=== PATIENT | female | born 1970 | race Caucasian/White ===

== ENCOUNTER 2018-07-04 08:20 | Day surgery (SDC) | payer OTHER ==
[~2018-07-04 08:20] MED LIST: Bupivacaine 0.5% 50 ML MDV ONE; Lidocaine 1% with EPINEPHrine 1:100,000 50 ML MDV ONE
[2018-07-04] MEDS ORDERED: Dextrose 5%-Lactated Ringers 1,000 ML IV SCH (08:30)
[2018-07-04] MEDS ORDERED: fentaNYL 100 MCG/2 ML SDV ONE (09:26)
[2018-07-04] MEDS ORDERED: Midazolam 1 MG/ML 2 ML SDV ONE (09:26)
[2018-07-04] MEDS ORDERED: Propofol 200 MG/20 ML SDV ONE (09:26)
[2018-07-04] MEDS ORDERED: ceFAZolin 2 GM in Premix Bag 1 BAG IV ONE (09:30)
--- NOTE | 2018-07-08 14:36 | OR ---
DATE OF PROCEDURE: 07/04/2018 PREOPERATIVE DIAGNOSIS: Complex partially cystic mass, right breast. POSTOPERATIVE DIAGNOSIS: Complex partially cystic mass, right breast. OPERATIVE PROCEDURE: Excision biopsy of complex partially cystic mass of right breast with intraoperative ultrasound guidance ([id number]). ANESTHESIA: Local plus IV sedation. COIN COUNTER AND WRAPPER: BAILEY Garcia INDICATION FOR PROCEDURE: This is a 48-year-old presenting with recently identified complex partial cystic mass in the right breast. After a preop evaluation and discussion, she wished to proceed with excision of this. Potential risks of the procedure including bleeding and infection were reviewed as well as possible need for additional treatment if malignancy is identified were all gone over, and the patient wishes to proceed. DETAILS OF PROCEDURE: The patient was taken to the operating room and placed in a supine position. IV sedation was administered, after which the area in the upper outer quadrant of the right breast was visualized by ultrasound and the area of the roughly 8 mm mass was identified. The skin overlying this was marked and depth of the lesion confirmed to be beginning at less than a centimeter below the skin. Following this, the right breast and surrounding areas were prepped and draped, and the area in the upper outer quadrant fairly close to the nipple-areolar border was injected with 1% lidocaine mixed with Marcaine. A slightly curved incision in line with skin creases was made and carried down through the skin and subcutaneous tissue. The entire area of subcutaneous tissue and some breast tissue underlying this, and a fairly broad area was then excised to make sure that we were getting the entire area removed, and this did contain some cystic material within it. The cyst that was identified was decompressed during the course of the manipulation and dissection. Specimen was then delivered from the field. The area around it was inspected. It was clear at this point that we had obtained a satisfactory complete excision of the area of concern. The area was inspected for hemostasis and minor bleeding points were cauterized. Incision was then closed with some 3-0 and 4-0 Vicryl stitch deep and a 4-0 Vicryl subcuticular stitch. Dressing was applied. The patient was taken to the recovery room in satisfactory condition. There were no evident complications. Cody Lakhani MD /[id number]
== END 2018-07-04 12:48 | disposition home or self-care (01) ==
LOC: JP.SDS 08:20
PROVIDERS: ATTEND Surgery
DX: N60.11 Diffuse cystic mastopathy of right breast (principal); N64.1 Fat necrosis of breast; N60.81 Other benign mammary dysplasias of right breast; I12.9 Hypertensive chronic kidney disease with stage 1 through stage 4 chronic kidney disease, or unspecified chronic kidney disease; N18.3 Chronic kidney disease, stage 3 (moderate); I69.951 Hemiplegia and hemiparesis following unspecified cerebrovascular disease affecting right dominant side; E78.5 Hyperlipidemia, unspecified; E66.9 Obesity, unspecified; Z68.39 Body mass index [BMI] 39.0-39.9, adult
CPT/HCPCS: 19120; 76998; 88305; J0690; J2250; J2704; J3010; J3490; J7042

== ENCOUNTER 2020-09-11 15:12 | Emergency (ER) | payer BC ==
[2020-09-11] MEDS ORDERED: Ondansetron 4 MG/2 ML SDV IVPUSH ONE (15:54)
[2020-09-11] MEDS ORDERED: fentaNYL 100 MCG/2 ML SDV IVPUSH ONE (15:54)
[2020-09-11] MEDS ORDERED: Sodium Chloride 0.9% 1,000 ML IV SCH (16:00)
--- NOTE | 2020-09-11 16:25 | EDM.PDOC ---
ED HPI GENERAL MEDICAL PROBLEM - General Chief Complaint: Abdominal Pain Stated Complaint: SEVERE ABDOMINAL PAIN Time Seen by Provider: 09/11/20 15:30 Source of Information: Reports: Patient History Limitations: Reports: No Limitations - History of Present Illness INITIAL COMMENTS - FREE TEXT/NARRATIVE: This is a 50 year old female presenting with abdominal pain. The patient reports she first had an episode of mild epigastric/upper abdominal pain one week ago. It was mild and went away so she didn't think much of it. 2 days ago she developed another episode of upper/epigastric abdominal pain that was severe in nature and associated with nausea and a feeling like she might faint. that episode lasted about 2 hours and resolved on its own. She generally felt well yesterday and ate without difficulty. However, today again around 1:30 this afternoon she developed severe upper abdominal pain that has been persistent since onset. She does admit that the episodes of pain seem related to eating, though she ate a hamburger yesterday without symptoms. She admits to a cholecystectomy many years ago. She does note a history of episodes of diarrhea and notes that is unchanged recently. No urinary symptoms. Abdominal Pain Score (Numeric/FACES): 7 - Related Data Allergies Allergy/AdvReac Type Severity Reaction Status Date / Time clotrimazole Allergy Swelling Verified 09/11/20 15:26 hydrochlorothiazide Allergy Renal Verified 09/11/20 15:26 Insufficiency trazodone Allergy Other Verified 09/11/20 15:26 Home Meds: Home Meds Loratadine 10 mg PO DAILY 12/11/17 [History] Metoprolol Succinate [Toprol XL 100mg] 100 mg PO DAILY 12/11/17 [History] amLODIPine Besylate [Amlodipine Besylate] 5 mg PO DAILY 12/11/17 [History] Aspirin [Halfprin] 81 mg PO DAILY 07/03/18 [History] Diclofenac Sodium [Voltaren] 1 applic TP QID PRN 07/03/18 [History] Triamcinolone Acetonide [Kenalog 0.1% Crm] 1 applic TOP BID PRN 07/03/18 [History] atorvaSTATin [Lipitor] 20 mg PO BEDTIME 07/03/18 [History] Amitriptyline [Elavil] 20 mg PO BEDTIME 05/28/19 [History] gemfibroziL [Gemfibrozil] 600 mg PO BID 09/11/20 [History] Past Medical History HEENT History: Reports: Allergic Rhinitis, Impaired Vision Cardiovascular History: Reports: High Cholesterol, Hypertension, Other (See Below) Other Cardiovascular History: loop heart recorder Gastrointestinal History: Reports: Cholelithiasis Genitourinary History: Reports: Renal Calculus 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 bone spurs Neurological History: Reports: CVA, Vertigo - Infectious Disease History Infectious Disease History: Reports: Chicken Pox - Past Surgical History HEENT Surgical History: Reports: None Cardiovascular Surgical History: Reports: None GI Surgical History: Reports: Cholecystectomy, EGD, Hernia, Abdominal Female Surgical History: Reports: Hysterectomy, Salpingo-Oophorectomy, Tubal Ligation Neurological Surgical History: Reports: None Musculoskeletal Surgical History: Reports: None Social & Family History - Family History Family Medical History: No Pertinent Family History - Tobacco Use Tobacco Use Status *Q: Never Tobacco User - Caffeine Use Caffeine Use: Reports: Soda - Recreational Drug Use Recreational Drug Use: No ED ROS GENERAL - Review of Systems Review Of Systems: Comprehensive ROS is negative, except as noted in HPI. ED EXAM, GI/ABD - Physical Exam Exam: See Below Exam Limited By: No Limitations General Appearance: Alert, Mild Distress (secondary to abdominal pain) Head: Atraumatic, Normocephalic Neck: Supple, Full Range of Motion Respiratory/Chest: No Respiratory Distress, Lungs Clear, Normal Breath Sounds, No Accessory Muscle Use Cardiovascular: Regular Rate, Rhythm GI/Abdominal Exam: Soft, No Distention, Tender (tender to palpation over epigastrium and periumbilical. ). No: Guarding, Rigid, Rebound Extremities: Normal Range of Motion Neurological: Alert, Oriented, Normal Cognition Psychiatric: Normal Affect, Normal Mood Skin Exam: Warm, Dry, No Rash. No: Jaundice Course - Vital Signs Last Recorded V/S: Last Vital Signs Temp 96.8 F L 09/11/20 15:32 Pulse 56 L 09/11/20 17:20 Resp 22 H 09/11/20 15:32 BP 108/69 09/11/20 17:20 Pulse Ox 94 L 09/11/20 17:20 - Orders/Labs/Meds Labs: Laboratory Tests 09/11/20 09/11/20 09/11/20 Range/Units 16:00 16:00 16:00 WBC 5.6 (4.5-11.0) K/uL RBC 4.50 (3.30-5.50) M/uL Hgb 13.5 (12.0-15.0) g/dL Hct 40.2 (36.0-48.0) % MCV 89 (80-98) fL MCH 30 (27-31) pg MCHC 34 (32-36) % Plt Count 251 (150-400) K/uL Neut % (Auto) 58.4 (36-66) % Lymph % (Auto) 26.0 (24-44) % [place] % (Auto) 7.5 H (2-6) % Eos % (Auto) 7.7 H (2-4) % Baso % (Auto) 0.4 (0-1) % Sodium 143 (140-148) mmol/L Potassium 4.2 (3.6-5.2) mmol/L Chloride 105 (100-108) mmol/L Carbon Dioxide 26 (21-32) mmol/L Anion Gap 12.1 (5.0-14.0) mmol/L BUN 23 H (7-18) mg/dL Creatinine 1.5 H (0.6-1.0) mg/dL Est Cr Clr Drug Dosing 45.26 mL/min Estimated GFR (MDRD) 37 L (>60) Glucose 166 H (74-106) mg/dL Lactic Acid 1.5 (0.4-2.0) mmol/L Calcium 9.2 (8.5-10.1) mg/dL Total Bilirubin 0.8 D (0.2-1.0) mg/dL AST 30 (15-37) U/L ALT 35 (12-78) U/L Alkaline Phosphatase 84 D (46-116) U/L Total Protein 7.0 (6.4-8.2) g/dL Albumin 3.6 (3.4-5.0) g/dL Globulin 3.4 (2.3-3.5) g/dL Albumin/Globulin Ratio 1.1 L (1.2-2.2) Lipase 152 (73-393) U/L Urine Color (YELLOW) Urine Appearance (CLEAR) Urine pH (5.0-8.0) Ur Specific [place] (1.008-1.030) Urine Protein (NEGATIVE) mg/dL Urine Glucose (UA) (NEGATIVE) mg/dL Urine Ketones (NEGATIVE) mg/dL Urine Occult Blood (NEGATIVE) Urine Nitrite (NEGATIVE) Urine Bilirubin (NEGATIVE) Urine Urobilinogen (0.2-1.0) EU/dL Ur Leukocyte Esterase (NEGATIVE) Urine RBC (0-5) Urine WBC (0-5) Ur Epithelial Cells Amorphous Sediment Urine Bacteria Urine Mucus 09/11/20 Range/Units 18:05 WBC (4.5-11.0) K/uL RBC (3.30-5.50) M/uL Hgb (12.0-15.0) g/dL Hct (36.0-48.0) % MCV (80-98) fL MCH (27-31) pg MCHC (32-36) % Plt Count (150-400) K/uL Neut % (Auto) (36-66) % Lymph % (Auto) (24-44) % [place] % (Auto) (2-6) % Eos % (Auto) (2-4) % Baso % (Auto) (0-1) % Sodium (140-148) mmol/L Potassium (3.6-5.2) mmol/L Chloride (100-108) mmol/L Carbon Dioxide (21-32) mmol/L Anion Gap (5.0-14.0) mmol/L BUN (7-18) mg/dL Creatinine (0.6-1.0) mg/dL Est Cr Clr Drug Dosing mL/min Estimated GFR (MDRD) (>60) Glucose (74-106) mg/dL Lactic Acid (0.4-2.0) mmol/L Calcium (8.5-10.1) mg/dL Total Bilirubin (0.2-1.0) mg/dL AST (15-37) U/L ALT (12-78) U/L Alkaline Phosphatase (46-116) U/L Total Protein (6.4-8.2) g/dL Albumin (3.4-5.0) g/dL Globulin (2.3-3.5) g/dL Albumin/Globulin Ratio (1.2-2.2) Lipase (73-393) U/L Urine Color Yellow (YELLOW) Urine Appearance Clear (CLEAR) Urine pH 5.5 (5.0-8.0) Ur Specific [place] 1.020 (1.008-1.030) Urine Protein Negative (NEGATIVE) mg/dL Urine Glucose (UA) Negative (NEGATIVE) mg/dL Urine Ketones Negative (NEGATIVE) mg/dL Urine Occult Blood Trace-intact H (NEGATIVE) Urine Nitrite Negative (NEGATIVE) Urine Bilirubin Negative (NEGATIVE) Urine Urobilinogen 0.2 (0.2-1.0) EU/dL Ur Leukocyte Esterase Trace H (NEGATIVE) Urine RBC 0-5 (0-5) Urine WBC 0-5 (0-5) Ur Epithelial Cells Occasional Amorphous Sediment Occasional Urine Bacteria Occasional Urine Mucus Occasional Meds: Medications Discontinued Medications Generic Name Dose Route Start Last Admin Trade Name Raj PRN Reason Stop Dose Admin Fentanyl 50 mcg 09/11/20 15:54 09/11/20 16:13 Fentanyl 100 Mcg/2 Ml Sdv IVPUSH 09/11/20 15:55 50 mcg ONETIME ONE Administration Sodium Chloride 1,000 mls @ 1,000 mls/hr 09/11/20 16:00 09/11/20 16:10 Normal Saline IV 1,000 mls/hr ASDIRECTED BERNY Administration Ondansetron HCl 4 mg 09/11/20 15:54 09/11/20 16:11 Ondansetron 4 Mg/2 Ml Sdv IVPUSH 09/11/20 15:55 4 mg ONETIME ONE Administration Pantoprazole Sodium 40 mg 09/11/20 17:52 09/11/20 18:10 Pantoprazole 40 Mg Vial IVPUSH 09/11/20 17:53 40 mg ONETIME ONE Administration Departure - Departure Time of Disposition: 18:22 Disposition: Home, Self-Care 01 Clinical Impression: Abdominal pain - Discharge Information Instructions: Abdominal Pain, Adult, [id number] Referrals: Dian Vazquez PA [Primary Care Provider] - Forms: ED Department Discharge Additional Instructions: Start taking over the counter prilosec. Use the [place] as needed for severe pain. Follow up with your doctor this coming week. Return to the Emergency Department if you develop worsening pain, fever, vomiting, or other new symptoms. Sepsis Event Note (ED) - Evaluation Sepsis Screening Result: No Definite Risk - Focused Exam Vital Signs: Vital Signs Temp Pulse Resp BP Pulse Ox 09/11/20 17:20 56 L 108/69 94 L 09/11/20 16:20 55 L 115/67 94 L 09/11/20 15:50 66 123/69 95 09/11/20 15:32 96.8 F L 60 22 H 122/73 97 09/11/20 15:24 96.8 F L 60 22 H 122/73 97 - Assessment/Plan Assessment:: This is a 50 year old female presenting with abdominal pain. A broad differential diagnosis was considered, including but no limited to, pancreatitis, PUD, gastritis, SBO, perforation, mesenteric ischemia, appendicitis, diverticulitis, UTI, pyelonephritis, renal colic, among others. Labs were obtained and were unrevealing aside from known mild creatinine elevation of 1.5. Lipase is normal, making pancreatitis unlikely. Urinalysis does not reveal any evidence of infection. Her lactate is normal, which is reassuring. CT abd/pelvis without contrast was obtained (due to elevated creatinine). This did not reveal any evidence of acute intra-abdominal pathology. She was treated with a dose of IV fentanyl, IVF, and a dose of protonix. Upon reassessment, she was feeling significantly improved and had a benign abdominal exam. The exact etiology of her symptoms is not entirely clear at this time. It is possible her symptoms are due to gastritis or an ulcer so I did recommend she do a trial of Prilosec. With her negative evaluation today and benign abdominal exam on reassessment, I think she is appropriate for discharge home with close follow up PCP early next week. She was instructed to return to the ED for any new or worsening symptoms, including worsening or persistent pain, vomiting, fever, or other concerning symptoms.
--- NOTE | 2020-09-11 17:44 | CRLCT ---
For Patients: As a result of the Century Cures Act, medical imaging exams and procedure reports are released immediately into your electronic medical record. You may view this report before your referring provider. If you have questions, please contact your health care provider. HISTORY: Severe upper abdominal pain. Stomach pain. COMPARISON: 07/05/2017. TECHNIQUE: Noncontrast axial images were obtained through the abdomen and pelvis. FINDINGS: Minimal dependent ground-glass opacities. The liver, spleen, pancreas, adrenal glands and kidneys are grossly normal. Tiny bilateral renal stones, measuring 3 mm. No hydronephrosis. The bowel is normal in caliber. The appendix is normal. No evidence for bowel obstruction. Sigmoid diverticula. No evidence for acute diverticulitis. Degenerative changes in the spine. IMPRESSION: Tiny renal stones. No hydronephrosis. No evidence for bowel obstruction. The appendix is normal. Please note that all CT scans at this facility use dose modulation, iterative reconstruction, and/or weight-based dosing when appropriate to reduce radiation dose to as low as reasonably achievable. Dictated by Jessica Navas MD @ 09/11/2020 5:42:[address] Jessica Navas @ Sep 11 2020 5:42PM
[2020-09-11] MEDS ORDERED: Pantoprazole 40 MG Vial IVPUSH ONE (17:52)
== END 2020-09-11 18:47 | disposition home or self-care (01) ==
LOC: JP.ED 15:12
DX: R10.13 Epigastric pain (principal); R10.33 Periumbilical pain; E78.00 Pure hypercholesterolemia, unspecified; I10 Essential (primary) hypertension; Z79.82 Long term (current) use of aspirin; Z79.899 Other long term (current) drug therapy; Z88.5 Allergy status to narcotic agent; Z88.8 Allergy status to other drugs, medicaments and biological substances
CPT/HCPCS: 36415; 74176; 80053; 81001; 83605; 83690; 85025; 96374; 96375; 99284; C9113; J2405; J3010; J7030

== ENCOUNTER 2020-11-30 10:38 | Inpatient (IN) | payer BC ==
[2020-11-30] MEDS ORDERED: REMDESIVIR 200 MG in Sodium Chloride 0.9% 250 ML IV ONE ×2 (11:51→12:45)
[2020-11-30] MEDS ORDERED: Acetaminophen 325 MG Tab PO PRN ×2 (11:51→14:36)
--- NOTE | 2020-11-30 12:11 | EDM.PDOC ---
ED HPI GENERAL MEDICAL PROBLEM - General Chief Complaint: Respiratory Problem Stated Complaint: SIGNS OF COVID-DIZZY,SHORT OF BREATHE Time Seen by Provider: 11/30/20 11:38 Source of Information: Reports: Patient, Family, RN Notes Reviewed History Limitations: Reports: No Limitations - History of Present Illness INITIAL COMMENTS - FREE TEXT/NARRATIVE: 50 yo female present to the Ed with co covid like sx she is unvacinated was exposed from her son she has had sx for about 1 weeks time - Related Data Allergies Allergy/AdvReac Type Severity Reaction Status Date / Time clotrimazole Allergy Swelling Verified 11/30/20 10:55 hydrochlorothiazide Allergy Renal Verified 11/30/20 10:55 Insufficiency trazodone Allergy Other Verified 11/30/20 10:55 Home Meds: Home Meds Loratadine 10 mg PO DAILY 12/11/17 [History] Metoprolol Succinate [Toprol XL 100mg] 100 mg PO DAILY 12/11/17 [History] amLODIPine Besylate [Amlodipine Besylate] 5 mg PO DAILY 12/11/17 [History] Aspirin [Halfprin] 81 mg PO DAILY 07/03/18 [History] Diclofenac Sodium [Voltaren] 1 applic TP QID PRN 07/03/18 [History] Triamcinolone Acetonide [Kenalog 0.1% Crm] 1 applic TOP BID PRN 07/03/18 [History] atorvaSTATin [Lipitor] 20 mg PO BEDTIME 07/03/18 [History] Amitriptyline [Elavil] 20 mg PO BEDTIME 05/28/19 [History] gemfibroziL [Gemfibrozil] 600 mg PO BID 09/11/20 [History] Past Medical History HEENT History: Reports: Allergic Rhinitis, Impaired Vision Cardiovascular History: Reports: High Cholesterol, Hypertension, Other (See Below) Other Cardiovascular History: loop heart recorder Gastrointestinal History: Reports: Cholelithiasis Genitourinary History: Reports: Chronic Renal Insuffiency, Renal Calculus 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 bone spurs Neurological History: Reports: CVA, Vertigo Endocrine/Metabolic History: Reports: Obesity/BMI 30+ - Infectious Disease History Infectious Disease History: Reports: Chicken Pox - Past Surgical History Head Surgeries/Procedures: Reports: None HEENT Surgical History: Reports: None Cardiovascular Surgical History: Reports: None GI Surgical History: Reports: Cholecystectomy, EGD, Hernia, Abdominal Female Surgical History: Reports: Hysterectomy, Salpingo-Oophorectomy, Tubal Ligation Endocrine Surgical History: Reports: None Neurological Surgical History: Reports: None Musculoskeletal Surgical History: Reports: None Social & Family History - Family History Family Medical History: No Pertinent Family History - Tobacco Use Tobacco Use Status *Q: Never Tobacco User Second Hand Smoke Exposure: No - Caffeine Use Caffeine Use: Reports: Soda - Recreational Drug Use Recreational Drug Use: No ED ROS GENERAL - Review of Systems Review Of Systems: See Below Constitutional: Reports: Fever, Chills, Weakness, Fatigue HEENT: Reports: No Symptoms Respiratory: Reports: Shortness of Breath, Cough, Sputum Cardiovascular: Reports: Dyspnea on Exertion GI/Abdominal: Reports: No Symptoms ED EXAM, GENERAL - Physical Exam Exam: See Below Exam Limited By: No Limitations General Appearance: Alert, No Apparent Distress Respiratory/Chest: No Respiratory Distress, Lungs Clear, Normal Breath Sounds, No Accessory Muscle Use, Chest Non-Tender Cardiovascular: Regular Rate, Rhythm, No Murmur GI/Abdominal: Soft, Non-Tender Course - Vital Signs Last Recorded V/S: Last Vital Signs Temp 97.5 F 11/30/20 10:49 Pulse 80 11/30/20 10:49 Resp 24 H 11/30/20 10:49 BP 106/65 11/30/20 10:49 Pulse Ox 88 L 11/30/20 10:49 - Orders/Labs/Meds Orders: Active Orders 24 hr Category Date Time Status Positioning, Patient [RC] ASDIRECTED Care 11/30/20 11:51 Active Acetaminophen [TylenoL] Med 11/30/20 11:51 Active 650 mg PO Q4H PRN Remdesivir 200 mg Med 11/30/20 12:45 Active Sodium Chloride 0.9% [Normal Saline] 250 ml IV ONETIME dexAMETHasone [Decadron] Med 11/30/20 12:00 Active 6 mg IVPUSH DAILY Isolation [COMM] Stat Oth 11/30/20 11:51 Ordered Medication Orders Acetaminophen (Acetaminophen 325 Mg Tab) 650 mg PO Q4H PRN PRN Reason: Fever Greater Than 101 Dexamethasone (Dexamethasone 4 Mg/Ml Sdv) 6 mg IVPUSH DAILY BERNY Stop: 12/09/20 09:01 Last Admin: 11/30/20 12:49 Dose: 6 mg Documented by: TONEY Remdesivir 200 mg/ Sodium (Chloride) 250 mls @ 250 mls/hr IV ONETIME ONE Stop: 11/30/20 13:44 Labs: Laboratory Tests 11/30/20 11/30/20 11/30/20 Range/Units 10:49 12:08 12:08 WBC 4.9 (4.5-11.0) K/uL RBC 4.47 (3.30-5.50) M/uL Hgb 13.5 (12.0-15.0) g/dL Hct 38.7 (36.0-48.0) % MCV 87 (80-98) fL MCH 30 (27-31) pg MCHC 35 (32-36) % Plt Count 137 L (150-400) K/uL Neut % (Auto) 74.9 H (36-66) % Lymph % (Auto) 20.4 L (24-44) % [place] % (Auto) 3.7 (2-6) % Eos % (Auto) 0.4 L (2-4) % Baso % (Auto) 0.6 (0-1) % Sodium 136 L (140-148) mmol/L Potassium 4.4 (3.6-5.2) mmol/L Chloride 101 (100-108) mmol/L Carbon Dioxide 22 (21-32) mmol/L Anion Gap 17.4 H (5.0-14.0) mmol/L BUN 45 H D (7-18) mg/dL Creatinine 1.7 H (0.6-1.0) mg/dL Est Cr Clr Drug Dosing 38.50 mL/min Estimated GFR (MDRD) 32 L (>60) Glucose 148 H (74-106) mg/dL Lactic Acid (0.4-2.0) mmol/L Calcium 8.7 (8.5-10.1) mg/dL Total Bilirubin 0.4 (0.2-1.0) mg/dL Direct Bilirubin 0.11 (0.0-0.2) mg/dL Indirect Bilirubin 0.29 AST 95 H D (15-37) U/L ALT 51 (12-78) U/L Alkaline Phosphatase 49 (46-116) U/L C-Reactive Protein 9.80 H (0.0-0.3) mg/dL Total Protein 7.4 (6.4-8.2) g/dL Albumin 3.1 L (3.4-5.0) g/dL Globulin 4.3 H (2.3-3.5) g/dL Albumin/Globulin Ratio 0.7 L (1.2-2.2) Procalcitonin ng/mL SARS-CoV-2 RNA (HILARY) Positive H (NEGATIVE) 11/30/20 11/30/20 Range/Units 12:08 12:08 WBC (4.5-11.0) K/uL RBC (3.30-5.50) M/uL Hgb (12.0-15.0) g/dL Hct (36.0-48.0) % MCV (80-98) fL MCH (27-31) pg MCHC (32-36) % Plt Count (150-400) K/uL Neut % (Auto) (36-66) % Lymph % (Auto) (24-44) % [place] % (Auto) (2-6) % Eos % (Auto) (2-4) % Baso % (Auto) (0-1) % Sodium (140-148) mmol/L Potassium (3.6-5.2) mmol/L Chloride (100-108) mmol/L Carbon Dioxide (21-32) mmol/L Anion Gap (5.0-14.0) mmol/L BUN (7-18) mg/dL Creatinine (0.6-1.0) mg/dL Est Cr Clr Drug Dosing mL/min Estimated GFR (MDRD) (>60) Glucose (74-106) mg/dL Lactic Acid 1.0 (0.4-2.0) mmol/L Calcium (8.5-10.1) mg/dL Total Bilirubin (0.2-1.0) mg/dL Direct Bilirubin (0.0-0.2) mg/dL Indirect Bilirubin AST (15-37) U/L ALT (12-78) U/L Alkaline Phosphatase (46-116) U/L C-Reactive Protein (0.0-0.3) mg/dL Total Protein (6.4-8.2) g/dL Albumin (3.4-5.0) g/dL Globulin (2.3-3.5) g/dL Albumin/Globulin Ratio (1.2-2.2) Procalcitonin 0.16 ng/mL SARS-CoV-2 RNA (HILARY) (NEGATIVE) Meds: Medications Generic Name Dose Route Start Last Admin Trade Name Freq PRN Reason Stop Dose Admin Acetaminophen 650 mg 11/30/20 11:51 Acetaminophen 325 Mg Tab PO Q4H PRN Fever Greater Than 101 Dexamethasone 6 mg 11/30/20 12:00 11/30/20 12:49 Dexamethasone 4 Mg/Ml Sdv IVPUSH 12/09/20 09:01 6 mg DAILY BERNY Administration Remdesivir 200 mg/ Sodium 250 mls @ 250 mls/hr 11/30/20 12:45 Chloride IV 11/30/20 13:44 ONETIME ONE Departure - Departure Time of Disposition: 12:53 Disposition: Admitted As Inpatient 66 Condition: Fair Clinical Impression: COVID - Discharge Information Referrals: Dian Vazquez PA [Primary Care Provider] - Forms: ED Department Discharge Sepsis Event Note (ED) - Evaluation Sepsis Screening Result: No Definite Risk - Focused Exam Vital Signs: Vital Signs Temp Pulse Resp BP Pulse Ox 11/30/20 10:49 97.5 F 80 24 H 106/65 88 L 11/30/20 10:47 97.5 F 80 24 H 106/65 88 L - My Orders Last 24 Hours: My Active Orders 11/30/20 11:51 Positioning, Patient [RC] ASDIRECTED Acetaminophen [TylenoL] 650 mg PO Q4H PRN Isolation [COMM] Stat 11/30/20 12:00 dexAMETHasone [Decadron] 6 mg IVPUSH DAILY 11/30/20 12:45 Remdesivir 200 mg Sodium Chloride 0.9% [Normal Saline] 250 ml IV ONETIME - Assessment/Plan Last 24 Hours: My Active Orders 11/30/20 11:51 Positioning, Patient [RC] ASDIRECTED Acetaminophen [TylenoL] 650 mg PO Q4H PRN Isolation [COMM] Stat 11/30/20 12:00 dexAMETHasone [Decadron] 6 mg IVPUSH DAILY 11/30/20 12:45 Remdesivir 200 mg Sodium Chloride 0.9% [Normal Saline] 250 ml IV ONETIME Plan: assessment COVID-19 with hypoxia Plan: admit hospitalist 12:50
[2020-11-30] MEDS: Dexamethasone 4 MG/ML SDV IVPUSH SCH (12:49)
--- NOTE | 2020-11-30 14:01 | PCM.HP.2 ---
H&P History of Present Illness - General Date of Service: 11/30/20 Admit Problem/Dx: Admission Diagnosis/Problem Admission Diagnosis/Problem Pneumonia Source of Information: Patient, Provider History Limitations: Reports: No Limitations - History of Present Illness Initial Comments - Free Text/Narative: CC: I have been passing out HPI: Rosetta presents to the emergency room today with progressive cough, shortness of breath and episodes of syncope. She has been feeling ill since last Sunday when she developed subjective fevers, cough, shortness of breath, nausea, diarrhea. She lost her sense of taste and smell. She has decreased appetite as well as decreased energy and diffuse weakness. Over the past 24 hours she has had a couple of episodes of syncope that occur while she is walking. She notices "stars" in her eyes and then slowly collapses to the floor. She thinks this is because her oxygen numbers have been low. She has steadily been getting worse so came in to get checked out. Both her son and were sick with Covid but have been improving. She has not had any treatment for Covid to date. She did have bilateral carpal tunnel surgery last week. Work-up in the emergency room did reveal a positive Covid test. She has mild to moderate elevation of D-dimer and CRP. She has hypoxic. She has received dexamethasone and remdesivir. She will be admitted for further management. - Related Data Allergies/Adverse Reactions: Allergies Allergy/AdvReac Type Severity Reaction Status Date / Time clotrimazole Allergy Swelling Verified 11/30/20 10:55 hydrochlorothiazide Allergy Renal Verified 11/30/20 10:55 Insufficiency trazodone Allergy Other Verified 11/30/20 10:55 Home Medications: Home Meds Loratadine 10 mg PO DAILY 12/11/17 [History] Metoprolol Succinate [Toprol XL 100mg] 100 mg PO DAILY 12/11/17 [History] amLODIPine Besylate [Amlodipine Besylate] 5 mg PO DAILY 12/11/17 [History] Aspirin [Halfprin] 81 mg PO DAILY 07/03/18 [History] Diclofenac Sodium [Voltaren] 1 applic TP QID PRN 07/03/18 [History] Triamcinolone Acetonide [Kenalog 0.1% Crm] 1 applic TOP BID PRN 07/03/18 [History] atorvaSTATin [Lipitor] 20 mg PO BEDTIME 07/03/18 [History] Amitriptyline [Elavil] 20 mg PO BEDTIME 05/28/19 [History] gemfibroziL [Gemfibrozil] 600 mg PO BID 09/11/20 [History] Past Medical History HEENT History: Reports: Allergic Rhinitis, Impaired Vision Cardiovascular History: Reports: High Cholesterol, Hypertension, Other (See Below) Other Cardiovascular History: loop heart recorder Gastrointestinal History: Reports: Cholelithiasis Genitourinary History: Reports: Chronic Renal Insuffiency, Renal Calculus [employer] COORD[employer] History: Reports: Dysfunctional Uterine Bleeding, , Spontaneous Musculoskeletal History: Reports: Arthritis, Back Pain, Chronic, Other (See Below) Other Musculoskeletal History: plantar fasciitis; carpal tunnel. bone spurs Neurological History: Reports: CVA, Vertigo Endocrine/Metabolic History: Reports: Obesity/BMI 30+ - Infectious Disease History Infectious Disease History: Reports: Chicken Pox - Past Surgical History Head Surgeries/Procedures: Reports: None HEENT Surgical History: Reports: None Cardiovascular Surgical History: Reports: None GI Surgical History: Reports: Cholecystectomy, EGD, Hernia, Abdominal Female Surgical History: Reports: Hysterectomy, Salpingo-Oophorectomy, Tubal Ligation Endocrine Surgical History: Reports: None Neurological Surgical History: Reports: None Musculoskeletal Surgical History: Reports: None Social & Family History - Family History Family Medical History: No Pertinent Family History - Tobacco Use Tobacco Use Status *Q: Never Tobacco User Second Hand Smoke Exposure: No - Caffeine Use Caffeine Use: Reports: Soda - Alcohol Use Alcohol Use History: No - Recreational Drug Use Recreational Drug Use: No H&P Review of Systems - Review of Systems: Review Of Systems: See Below Free Text/Narrative: A complete 12 point review of systems was obtained. Pertinent positives and negatives are noted in the history of present illness. All other systems were reviewed and were negative except as noted. Exam - Exam Exam: See Below - Vital Signs Vital Signs: Last Vital Signs Temp 36.4 C 11/30/20 10:49 Pulse 80 11/30/20 10:49 Resp 24 H 11/30/20 10:49 BP 106/65 11/30/20 10:49 Pulse Ox 88 L 11/30/20 10:49 Weight: 108.862 kg - Exam Quality Assessment: Supplemental Oxygen General: Alert, Oriented, Cooperative, Mild Distress HEENT: Conjunctiva Clear. No: Mucosa Moist & [place] (Dry), Scleral Icterus Neck: Supple, Trachea Midline. No: Lymphadenopathy Lungs: Normal Respiratory Effort, Crackles (Rare both lower lungs) Cardiovascular: Regular Rate, Regular Rhythm. No: Systolic Murmur GI/Abdominal Exam: Normal Bowel Sounds, Soft, Non-Tender, No Distention Back Exam: Normal Inspection, Full Range of Motion Extremities: Normal Inspection. No: Increased Warmth Peripheral Pulses: 2+: Dorsalis Pedis (L), Dorsalis Pedis (R) Skin: Warm, Dry Neuro Extensive - Mental Status: Alert, Oriented x3, Nl Response to Commands Neuro Extensive - Motor, Sensory, Reflexes: No: Dysarthria, Abnormal Motor, Tremor Psychiatric: Alert, Normal Affect - Patient Data Lab Results Last 24 hrs: Laboratory Results - last 24 hr 11/30/20 11/30/20 11/30/20 Range/Units 10:49 12:08 12:08 WBC 4.9 (4.5-11.0) K/uL RBC 4.47 (3.30-5.50) M/uL Hgb 13.5 (12.0-15.0) g/dL Hct 38.7 (36.0-48.0) % MCV 87 (80-98) fL MCH 30 (27-31) pg MCHC 35 (32-36) % Plt Count 137 L (150-400) K/uL Neut % (Auto) 74.9 H (36-66) % Lymph % (Auto) 20.4 L (24-44) % [place] % (Auto) 3.7 (2-6) % Eos % (Auto) 0.4 L (2-4) % Baso % (Auto) 0.6 (0-1) % Sodium 136 L (140-148) mmol/L Potassium 4.4 (3.6-5.2) mmol/L Chloride 101 (100-108) mmol/L Carbon Dioxide 22 (21-32) mmol/L Anion Gap 17.4 H (5.0-14.0) mmol/L BUN 45 H D (7-18) mg/dL Creatinine 1.7 H (0.6-1.0) mg/dL Est Cr Clr Drug Dosing 38.50 mL/min Estimated GFR (MDRD) 32 L (>60) Glucose 148 H (74-106) mg/dL Lactic Acid (0.4-2.0) mmol/L Calcium 8.7 (8.5-10.1) mg/dL Total Bilirubin 0.4 (0.2-1.0) mg/dL Direct Bilirubin 0.11 (0.0-0.2) mg/dL Indirect Bilirubin 0.29 AST 95 H D (15-37) U/L ALT 51 (12-78) U/L Alkaline Phosphatase 49 (46-116) U/L C-Reactive Protein 9.80 H (0.0-0.3) mg/dL Total Protein 7.4 (6.4-8.2) g/dL Albumin 3.1 L (3.4-5.0) g/dL Globulin 4.3 H (2.3-3.5) g/dL Albumin/Globulin Ratio 0.7 L (1.2-2.2) Procalcitonin ng/mL SARS-CoV-2 RNA ([facility]) Positive H (NEGATIVE) 11/30/20 11/30/20 Range/Units 12:08 12:08 WBC (4.5-11.0) K/uL RBC (3.30-5.50) M/uL Hgb (12.0-15.0) g/dL Hct (36.0-48.0) % MCV (80-98) fL MCH (27-31) pg MCHC (32-36) % Plt Count (150-400) K/uL Neut % (Auto) (36-66) % Lymph % (Auto) (24-44) % [place] % (Auto) (2-6) % Eos % (Auto) (2-4) % Baso % (Auto) (0-1) % Sodium (140-148) mmol/L Potassium (3.6-5.2) mmol/L Chloride (100-108) mmol/L Carbon Dioxide (21-32) mmol/L Anion Gap (5.0-14.0) mmol/L BUN (7-18) mg/dL Creatinine (0.6-1.0) mg/dL Est Cr Clr Drug Dosing mL/min Estimated GFR (MDRD) (>60) Glucose (74-106) mg/dL Lactic Acid 1.0 (0.4-2.0) mmol/L Calcium (8.5-10.1) mg/dL Total Bilirubin (0.2-1.0) mg/dL Direct Bilirubin (0.0-0.2) mg/dL Indirect Bilirubin AST (15-37) U/L ALT (12-78) U/L Alkaline Phosphatase (46-116) U/L C-Reactive Protein (0.0-0.3) mg/dL Total Protein (6.4-8.2) g/dL Albumin (3.4-5.0) g/dL Globulin (2.3-3.5) g/dL Albumin/Globulin Ratio (1.2-2.2) Procalcitonin 0.16 ng/mL SARS-CoV-2 RNA ([facility]) (NEGATIVE) Result Diagrams: 11/30/20 12:08 11/30/20 12:08 Sepsis Event Note - Evaluation Sepsis Screening Result: No Definite Risk - Focused Exam Vital Signs: Vital Signs Temp Pulse Resp BP Pulse Ox 11/30/20 10:49 36.4 C 80 24 H 106/65 88 L 11/30/20 10:47 36.4 C 80 24 H 106/65 88 L *Q Meaningful Use (ADM) - VTE Risk Assess *Q Each Risk Factor Represents 1 Point: Age 41 - 59 years, Obesity ( BMI > 25 kg/m2), Serious lung disease including pneumonia Total Score 1 Point Risk Factors: 3 Each Risk Factor Represents 2 Points: None Total Score 2 Point Risk Factors: 0 Each Risk Factor Represents 3 Points: None Total Score 3 Point Risk Factors: 0 Each Risk Factor Represents 5 Points: None Total Score 5 Point Risk Factors: 0 Venous Thromboembolism Risk Factor Score *Q: 3 Problem List Initiated/Reviewed/Updated: Yes Orders Last 24hrs: Active Orders 24 hr Category Date Time Status Patient Status Manage Transfer [TRANSFER] Routine ADT 11/30/20 13:45 Ordered Positioning, Patient [RC] ASDIRECTED Care 11/30/20 11:51 Active Acetaminophen [TylenoL] Med 11/30/20 11:51 Active 650 mg PO Q4H PRN dexAMETHasone [Decadron] Med 11/30/20 12:00 Active 6 mg IVPUSH DAILY Isolation [COMM] Stat Oth 11/30/20 11:51 Ordered Resuscitation Status Routine Resus Stat 11/30/20 13:47 Ordered Medication Orders Acetaminophen (Acetaminophen 325 Mg Tab) 650 mg PO Q4H PRN PRN Reason: Fever Greater Than 101 Last Admin: 11/30/20 12:52 Dose: 650 mg Documented by: TONEY Dexamethasone (Dexamethasone 4 Mg/Ml Sdv) 6 mg IVPUSH DAILY BERNY Stop: 12/09/20 09:01 Last Admin: 11/30/20 12:49 Dose: 6 mg Documented by: TONEY Assessment/Plan Comment:: ASSESSMENT AND PLAN - COVID-19 pneumonia-complicated by acute respiratory failure with hypoxia. Extensive symptoms at the time of presentation. She is hypoxic. She is not vaccinated. Mild to moderate elevation of CRP and D-dimer. At a higher risk for progression to severe illness given obesity, chronic kidney disease and hypertension. -Dexamethasone 6 mg daily -Remdesivir x5 days -Enoxaparin 40 mg daily -CMP daily and inflammatory labs every 2 to 3 days -Symptomatic management of cough and fever -Covid isolation (symptom onset 11/23) -Encourage vaccination in 3 months Stage IIIb chronic kidney disease-creatinine near baseline. Essential hypertension-blood pressure acceptable so far. -Continue home medications Obesity with BMI 30-40- Maintenance issues - -DVT prophylaxis-enoxaparin -GI prophylaxis-not indicated -Nutrition-regular -Bustos catheter-not indicated CODE STATUS -full code Admission justification -this patient will be admitted for inpatient services and is medically appropriate meeting medical necessity for inpatient admission as outlined in my documentation. I reasonably expect the patient will require inpatient services that span a period time over 2 midnights. I reasonably expect this patient to be discharged or transferred within 96 hours [facility]. Disposition -I anticipate discharge home after the hospital stay Primary care physician -JACKY Toribio M.D. - Mortality Measure Prognosis:: Good
[2020-11-30] MEDS ORDERED: guaiFENesin/Dextromethorphan 100-10 MG/5 ML Soln 10 ML Cup PO PRN (14:36)
[2020-11-30] MEDS ORDERED: LORazepam 2 MG/ML SDV IVPUSH PRN (14:36)
[2020-11-30] MEDS ORDERED: Ondansetron 4 MG Tab.DIS PO PRN (14:36)
[2020-11-30] MEDS ORDERED: Diclofenac Sodium 1% Gel 100 GM Tube TOP PRN (14:36)
[2020-11-30] MEDS ORDERED: Ondansetron 4 MG/2 ML SDV IV PRN (14:36)
[2020-11-30] MEDS: Enoxaparin 40 MG/0.4 ML Syringe SUBCUT SCH (17:18)
[2020-11-30] MEDS: Gemfibrozil 600 MG Tab PO SCH (20:43)
[2020-11-30] MEDS: atorvaSTATin 20 MG Tab PO SCH (20:43)
[2020-11-30] MEDS: Amitriptyline 10 MG Tab PO SCH (20:43)
[2020-11-30] MEDS: Benzonatate 100 MG Cap PO PRN (20:45)
[2020-12-01] MEDS: Benzonatate 100 MG Cap PO PRN (05:32)
[2020-12-01] MEDS ORDERED: amLODIPine 5 MG Tab PO SCH (09:00)
[2020-12-01] MEDS ORDERED: Non-Formulary Medication 1 Each (Metoprolol Succinate [Toprol Xl 100mg] 100 MG Tab.Er) PO SCH (09:00)
[2020-12-01] MEDS: Aspirin 81 MG Tab.EC PO SCH (09:16)
[2020-12-01] MEDS: Gemfibrozil 600 MG Tab PO SCH ×2 (09:16→20:38)
[2020-12-01] MEDS: Metoprolol Succinate 50 MG Tab.ER PO SCH (09:16)
[2020-12-01] MEDS: Dexamethasone 4 MG/ML SDV IVPUSH SCH (09:16)
[2020-12-01] MEDS: Loratadine 10 MG Tab PO SCH (09:16)
--- NOTE | 2020-12-01 10:51 | PCM.PN ---
- General Info Date of Service: 12/01/20 Subjective Update: No acute events overnight. Patient reports stable shortness of breath and cough. Still has a mild headache and myalgias that may be slightly better. No nausea or vomiting. Still has some diarrhea. Feels dizzy. Still on 3 L of supplemental oxygen. No fevers. Functional Status: Reports: Pain Controlled, Tolerating Diet - Review of Systems General: Reports: Weakness. Denies: Fever Pulmonary: Reports: Shortness of Breath, Cough Neurological: Reports: Dizziness - Patient Data Vitals - Most Recent: Last Vital Signs Temp 35.7 C L 12/01/20 08:08 Pulse 90 12/01/20 09:16 Resp 22 H 12/01/20 08:08 BP 91/57 L 12/01/20 09:16 Pulse Ox 91 L 12/01/20 08:08 Weight - Most Recent: 110.677 kg I&O - Last 24 Hours: Intake & Output 11/30/20 12/01/20 12/01/20 22:59 06:59 14:59 Intake Total 620 Balance 620 Lab Results Last 24 Hours: Laboratory Results - last 24 hr 11/30/20 11/30/20 11/30/20 Range/Units 10:49 12:08 12:08 WBC 4.9 (4.5-11.0) K/uL RBC 4.47 (3.30-5.50) M/uL Hgb 13.5 (12.0-15.0) g/dL Hct 38.7 (36.0-48.0) % MCV 87 (80-98) fL MCH 30 (27-31) pg MCHC 35 (32-36) % Plt Count 137 L (150-400) K/uL Neut % (Auto) 74.9 H (36-66) % Lymph % (Auto) 20.4 L (24-44) % Lucas % (Auto) 3.7 (2-6) % Eos % (Auto) 0.4 L (2-4) % Baso % (Auto) 0.6 (0-1) % Sodium 136 L (140-148) mmol/L Potassium 4.4 (3.6-5.2) mmol/L Chloride 101 (100-108) mmol/L Carbon Dioxide 22 (21-32) mmol/L Anion Gap 17.4 H (5.0-14.0) mmol/L BUN 45 H D (7-18) mg/dL Creatinine 1.7 H (0.6-1.0) mg/dL Est Cr Clr Drug Dosing 38.50 mL/min Estimated GFR (MDRD) 32 L (>60) Glucose 148 H (74-106) mg/dL Lactic Acid (0.4-2.0) mmol/L Calcium 8.7 (8.5-10.1) mg/dL Total Bilirubin 0.4 (0.2-1.0) mg/dL Direct Bilirubin 0.11 (0.0-0.2) mg/dL Indirect Bilirubin 0.29 AST 95 H D (15-37) U/L ALT 51 (12-78) U/L Alkaline Phosphatase 49 (46-116) U/L C-Reactive Protein 9.80 H (0.0-0.3) mg/dL Total Protein 7.4 (6.4-8.2) g/dL Albumin 3.1 L (3.4-5.0) g/dL Globulin 4.3 H (2.3-3.5) g/dL Albumin/Globulin Ratio 0.7 L (1.2-2.2) Procalcitonin ng/mL SARS-CoV-2 RNA ([facility]) Positive H (NEGATIVE) 11/30/20 11/30/20 12/01/20 Range/Units 12:08 12:08 05:11 WBC 4.8 (4.5-11.0) K/uL RBC 4.33 (3.30-5.50) M/uL Hgb 13.2 (12.0-15.0) g/dL Hct 38.3 (36.0-48.0) % MCV 89 (80-98) fL MCH 31 (27-31) pg MCHC 35 (32-36) % Plt Count 150 (150-400) K/uL Neut % (Auto) (36-66) % Lymph % (Auto) (24-44) % Lucas % (Auto) (2-6) % Eos % (Auto) (2-4) % Baso % (Auto) (0-1) % Sodium (140-148) mmol/L Potassium (3.6-5.2) mmol/L Chloride (100-108) mmol/L Carbon Dioxide (21-32) mmol/L Anion Gap (5.0-14.0) mmol/L BUN (7-18) mg/dL Creatinine (0.6-1.0) mg/dL Est Cr Clr Drug Dosing mL/min Estimated GFR (MDRD) (>60) Glucose (74-106) mg/dL Lactic Acid 1.0 (0.4-2.0) mmol/L Calcium (8.5-10.1) mg/dL Total Bilirubin (0.2-1.0) mg/dL Direct Bilirubin (0.0-0.2) mg/dL Indirect Bilirubin AST (15-37) U/L ALT (12-78) U/L Alkaline Phosphatase (46-116) U/L C-Reactive Protein (0.0-0.3) mg/dL Total Protein (6.4-8.2) g/dL Albumin (3.4-5.0) g/dL Globulin (2.3-3.5) g/dL Albumin/Globulin Ratio (1.2-2.2) Procalcitonin 0.16 ng/mL SARS-CoV-2 RNA ([facility]) (NEGATIVE) 12/01/20 Range/Units 05:11 WBC (4.5-11.0) K/uL RBC (3.30-5.50) M/uL Hgb (12.0-15.0) g/dL Hct (36.0-48.0) % MCV (80-98) fL MCH (27-31) pg MCHC (32-36) % Plt Count (150-400) K/uL Neut % (Auto) (36-66) % Lymph % (Auto) (24-44) % Lucas % (Auto) (2-6) % Eos % (Auto) (2-4) % Baso % (Auto) (0-1) % Sodium 140 (140-148) mmol/L Potassium 4.2 (3.6-5.2) mmol/L Chloride 104 (100-108) mmol/L Carbon Dioxide 25 (21-32) mmol/L Anion Gap 11.1 (5.0-14.0) mmol/L BUN 47 H (7-18) mg/dL Creatinine 1.3 H (0.6-1.0) mg/dL Est Cr Clr Drug Dosing 50.35 mL/min Estimated GFR (MDRD) 43 L (>60) Glucose 116 H (74-106) mg/dL Lactic Acid (0.4-2.0) mmol/L Calcium 8.8 (8.5-10.1) mg/dL Total Bilirubin 0.4 (0.2-1.0) mg/dL Direct Bilirubin (0.0-0.2) mg/dL Indirect Bilirubin AST 80 H (15-37) U/L ALT 57 (12-78) U/L Alkaline Phosphatase 49 (46-116) U/L C-Reactive Protein (0.0-0.3) mg/dL Total Protein 6.8 (6.4-8.2) g/dL Albumin 3.0 L (3.4-5.0) g/dL Globulin 3.8 H (2.3-3.5) g/dL Albumin/Globulin Ratio 0.8 L (1.2-2.2) Procalcitonin ng/mL SARS-CoV-2 RNA ([facility]) (NEGATIVE) Med Orders - Current: Current Medications Acetaminophen (Acetaminophen 325 Mg Tab) 650 mg PO Q4H PRN PRN Reason: Pain (Mild 1-3)/fever Amitriptyline HCl (Amitriptyline 10 Mg Tab) 20 mg PO BEDTIME [facility] Last Admin: 11/30/20 20:43 Dose: 20 mg Documented by: Amlodipine Besylate (Amlodipine 5 Mg Tab) 5 mg PO DAILY [facility] Aspirin (Aspirin 81 Mg Tab.Ec) 81 mg PO DAILY [facility] Last Admin: 12/01/20 09:16 Dose: 81 mg Documented by: Atorvastatin Calcium (Atorvastatin 20 Mg Tab) 20 mg PO BEDTIME [facility] Last Admin: 11/30/20 20:43 Dose: 20 mg Documented by: Benzonatate (Benzonatate 100 Mg Cap) 100 mg PO TID PRN PRN Reason: Cough Last Admin: 12/01/20 05:32 Dose: 100 mg Documented by: Dexamethasone (Dexamethasone 4 Mg/Ml Sdv) 6 mg IVPUSH DAILY [facility] Stop: 12/09/20 09:01 Last Admin: 12/01/20 09:16 Dose: 6 mg Documented by: Diclofenac Sodium (Diclofenac Sodium 1% Gel 100 Gm Tube) 0 gm TOP QID PRN PRN Reason: Pain Enoxaparin Sodium (Enoxaparin 40 Mg/0.4 Ml Syringe) 40 mg SUBCUT Q24H [facility] Last Admin: 11/30/20 17:18 Dose: 40 mg Documented by: Gemfibrozil (Gemfibrozil 600 Mg Tab) 600 mg PO BID [facility] Last Admin: 12/01/20 09:16 Dose: 600 mg Documented by: Guaifenesin/Dextromethorphan (Guaifenesin/Dextromethorphan 100-10 Mg/5 Ml Soln 10 Ml Cup) 10 ml PO Q4H PRN PRN Reason: Cough Last Admin: 12/01/20 00:36 Dose: 10 ml Documented by: Remdesivir 100 mg/ Sodium (Chloride) 100 mls @ 100 mls/hr IV Q24H [facility] Stop: 12/04/20 12:59 Loratadine (Loratadine 10 Mg Tab) 10 mg PO DAILY [facility] Last Admin: 12/01/20 09:16 Dose: 10 mg Documented by: Lorazepam (Lorazepam 2 Mg/Ml Sdv) 0.5 mg IVPUSH Q4H PRN PRN Reason: Nausea/Vomiting Metoprolol Succinate (Metoprolol Succinate 50 Mg Tab.Er) 100 mg PO DAILY [facility] Last Admin: 12/01/20 09:16 Dose: 100 mg Documented by: Ondansetron HCl (Ondansetron 4 Mg/2 Ml Sdv) 4 mg IV Q6H PRN PRN Reason: Nausea/Vomiting Ondansetron HCl (Ondansetron 4 Mg Tab.Dis) 4 mg PO Q6H PRN PRN Reason: Nausea able to take PO Senna/Docusate Sodium (Docusate Sodium/Sennosides 50-8.6 Mg Tab) 1 tab PO BID PRN PRN Reason: Constipation Discontinued Medications Acetaminophen (Acetaminophen 325 Mg Tab) 650 mg PO Q4H PRN PRN Reason: Fever Greater Than 101 Last Admin: 11/30/20 12:52 Dose: 650 mg Documented by: Remdesivir 200 mg/ Sodium (Chloride) 250 mls @ 250 mls/hr IV ONETIME ONE Stop: 11/30/20 13:44 Last Admin: 11/30/20 12:53 Dose: 250 mls/hr Documented by: - Exam Quality Assessment: Supplemental Oxygen General: Alert, Oriented, Cooperative, No Acute Distress Lungs: Normal Respiratory Effort GI/Abdominal Exam: Soft, No Distention Extremities: No Pedal Edema, Other (Both wrists have intact suture lines from carpal tunnel surgery. No swelling or erythema or drainage) Skin: Warm, Dry Psy/Mental Status: Alert, Normal Affect - Patient Data Lab Results Last 24 hrs: Laboratory Results - last 24 hr 11/30/20 11/30/20 11/30/20 Range/Units 10:49 12:08 12:08 WBC 4.9 (4.5-11.0) K/uL RBC 4.47 (3.30-5.50) M/uL Hgb 13.5 (12.0-15.0) g/dL Hct 38.7 (36.0-48.0) % MCV 87 (80-98) fL MCH 30 (27-31) pg MCHC 35 (32-36) % Plt Count 137 L (150-400) K/uL Neut % (Auto) 74.9 H (36-66) % Lymph % (Auto) 20.4 L (24-44) % Lucas % (Auto) 3.7 (2-6) % Eos % (Auto) 0.4 L (2-4) % Baso % (Auto) 0.6 (0-1) % Sodium 136 L (140-148) mmol/L Potassium 4.4 (3.6-5.2) mmol/L Chloride 101 (100-108) mmol/L Carbon Dioxide 22 (21-32) mmol/L Anion Gap 17.4 H (5.0-14.0) mmol/L BUN 45 H D (7-18) mg/dL Creatinine 1.7 H (0.6-1.0) mg/dL Est Cr Clr Drug Dosing 38.50 mL/min Estimated GFR (MDRD) 32 L (>60) Glucose 148 H (74-106) mg/dL Lactic Acid (0.4-2.0) mmol/L Calcium 8.7 (8.5-10.1) mg/dL Total Bilirubin 0.4 (0.2-1.0) mg/dL Direct Bilirubin 0.11 (0.0-0.2) mg/dL Indirect Bilirubin 0.29 AST 95 H D (15-37) U/L ALT 51 (12-78) U/L Alkaline Phosphatase 49 (46-116) U/L C-Reactive Protein 9.80 H (0.0-0.3) mg/dL Total Protein 7.4 (6.4-8.2) g/dL Albumin 3.1 L (3.4-5.0) g/dL Globulin 4.3 H (2.3-3.5) g/dL Albumin/Globulin Ratio 0.7 L (1.2-2.2) Procalcitonin ng/mL SARS-CoV-2 RNA ([facility]ARY) Positive H (NEGATIVE) 11/30/20 11/30/20 12/01/20 Range/Units 12:08 12:08 05:11 WBC 4.8 (4.5-11.0) K/uL RBC 4.33 (3.30-5.50) M/uL Hgb 13.2 (12.0-15.0) g/dL Hct 38.3 (36.0-48.0) % MCV 89 (80-98) fL MCH 31 (27-31) pg MCHC 35 (32-36) % Plt Count 150 (150-400) K/uL Neut % (Auto) (36-66) % Lymph % (Auto) (24-44) % Lucas % (Auto) (2-6) % Eos % (Auto) (2-4) % Baso % (Auto) (0-1) % Sodium (140-148) mmol/L Potassium (3.6-5.2) mmol/L Chloride (100-108) mmol/L Carbon Dioxide (21-32) mmol/L Anion Gap (5.0-14.0) mmol/L BUN (7-18) mg/dL Creatinine (0.6-1.0) mg/dL Est Cr Clr Drug Dosing mL/min Estimated GFR (MDRD) (>60) Glucose (74-106) mg/dL Lactic Acid 1.0 (0.4-2.0) mmol/L Calcium (8.5-10.1) mg/dL Total Bilirubin (0.2-1.0) mg/dL Direct Bilirubin (0.0-0.2) mg/dL Indirect Bilirubin AST (15-37) U/L ALT (12-78) U/L Alkaline Phosphatase (46-116) U/L C-Reactive Protein (0.0-0.3) mg/dL Total Protein (6.4-8.2) g/dL Albumin (3.4-5.0) g/dL Globulin (2.3-3.5) g/dL Albumin/Globulin Ratio (1.2-2.2) Procalcitonin 0.16 ng/mL SARS-CoV-2 RNA ([facility]) (NEGATIVE) 12/01/20 Range/Units 05:11 WBC (4.5-11.0) K/uL RBC (3.30-5.50) M/uL Hgb (12.0-15.0) g/dL Hct (36.0-48.0) % MCV (80-98) fL MCH (27-31) pg MCHC (32-36) % Plt Count (150-400) K/uL Neut % (Auto) (36-66) % Lymph % (Auto) (24-44) % Lucas % (Auto) (2-6) % Eos % (Auto) (2-4) % Baso % (Auto) (0-1) % Sodium 140 (140-148) mmol/L Potassium 4.2 (3.6-5.2) mmol/L Chloride 104 (100-108) mmol/L Carbon Dioxide 25 (21-32) mmol/L Anion Gap 11.1 (5.0-14.0) mmol/L BUN 47 H (7-18) mg/dL Creatinine 1.3 H (0.6-1.0) mg/dL Est Cr Clr Drug Dosing 50.35 mL/min Estimated GFR (MDRD) 43 L (>60) Glucose 116 H (74-106) mg/dL Lactic Acid (0.4-2.0) mmol/L Calcium 8.8 (8.5-10.1) mg/dL Total Bilirubin 0.4 (0.2-1.0) mg/dL Direct Bilirubin (0.0-0.2) mg/dL Indirect Bilirubin AST 80 H (15-37) U/L ALT 57 (12-78) U/L Alkaline Phosphatase 49 (46-116) U/L C-Reactive Protein (0.0-0.3) mg/dL Total Protein 6.8 (6.4-8.2) g/dL Albumin 3.0 L (3.4-5.0) g/dL Globulin 3.8 H (2.3-3.5) g/dL Albumin/Globulin Ratio 0.8 L (1.2-2.2) Procalcitonin ng/mL SARS-CoV-2 RNA ([facility]) (NEGATIVE) Result Diagrams: 12/01/20 05:11 12/01/20 05:11 Sepsis Event Note - Evaluation Sepsis Screening Result: Sepsis Risk - Focused Exam Vital Signs: Vital Signs Temp Pulse Pulse Resp BP BP Pulse Ox 12/01/20 09:16 90 91/57 L 12/01/20 08:08 35.7 C L 76 22 H 91/57 L 91 L 12/01/20 07:31 92 L 12/01/20 03:00 36.1 C 85 18 112/71 92 L 12/01/20 01:24 93 L - Problem List Review Problem List Initiated/Reviewed/Updated: Yes - My Orders Last 24 Hours: My Active Orders 11/30/20 13:47 Resuscitation Status Routine 11/30/20 14:36 Acetaminophen [TylenoL] 650 mg PO Q4H PRN Benzonatate [Tessalon Perles] 100 mg PO TID PRN Dextromethorphan/guaiFENesin [Robitussin DM] 10 ml PO Q4H PRN Diclofenac Sodium [Voltaren 1% Gel] 0 gm TOP QID PRN Docusate Sodium/Sennosides [Senna Plus] 1 tab PO BID PRN LORazepam [Ativan] 0.5 mg IVPUSH Q4H PRN Ondansetron [Zofran ODT] 4 mg PO Q6H PRN Ondansetron [Zofran] 4 mg IV Q6H PRN 11/30/20 14:36 Patient Status [ADT] Routine Intake and Output [RC] QSHIFT Notify Provider Vital Signs [RC] ASDIRECTED Nurse Communication: Isolation [RC] ASDIRECTED Oxygen Therapy [RC] PRN Pulse Oximetry [RC] CONTINUOUS Up With Assistance [RC] ASDIRECTED VTE/DVT Education [RC] Per Unit Routine Vital Signs [RC] Q4H Isolation [COMM] Routine 11/30/20 15:00 Enoxaparin [Lovenox] 40 mg SUBCUT Q24H 11/30/20 Dinner Regular Diet [DIET] 11/30/20 21:00 Amitriptyline [Elavil] 20 mg PO BEDTIME atorvaSTATin [Lipitor] 20 mg PO BEDTIME gemfibroziL [Lopid] 600 mg PO BID 12/01/20 09:00 Aspirin [Halfprin] 81 mg PO DAILY Loratadine [Claritin] 10 mg PO DAILY Metoprolol Succinate [Toprol XL] 100 mg PO DAILY amLODIPine [Norvasc] 5 mg PO DAILY 12/01/20 10:49 Codeine/guaiFENesin [Robitussin AC] 10 ml PO Q6H PRN 12/01/20 10:50 Boone Sutures Removal [RC] ROUTINE 12/01/20 12:00 Remdesivir 100 mg Sodium Chloride 0.9% [Normal Saline] 100 ml IV Q24H 12/02/20 05:00 C-REACTIVE PROTEIN [CHEM] Timed CBC W/O DIFF,HEMOGRAM [HEME] Timed (1) COMPREHENSIVE METABOLIC PN,CMP [CHEM] Timed DD [D-DIMER QUANTITATIVE] [COAG] Timed - Plan Plan:: ASSESSMENT AND PLAN - COVID-19 pneumonia-complicated by acute respiratory failure with hypoxia. No significant change since yesterday. Still requiring 3 L. Tolerating treatment so far. Dizzy but otherwise doing okay. -Dexamethasone 6 mg daily (day 2) -Remdesivir x5 days -Enoxaparin 40 mg daily -CMP daily and inflammatory labs every 2 to 3 days -Symptomatic management of cough and fever -Covid isolation (symptom onset 11/23) -Encourage vaccination in 3 months Bilateral carpal tunnel surgery-recovering well. Dressings removed and no concerns about the surgical sites. Stage IIIb chronic kidney disease-creatinine has improved since admission. Essential hypertension-blood pressure acceptable so far. -Continue home medications Obesity with BMI 30-40- Maintenance issues - -DVT prophylaxis-enoxaparin -GI prophylaxis-not indicated -Nutrition-regular Disposition -I anticipate discharge home after the hospital stay Primary care physician -JACKY Toribio M.D.
[2020-12-01] MEDS: REMDESIVIR 100 MG in Sodium Chloride 0.9% 100 ML IV SCH (11:25)
[2020-12-01] MEDS: Enoxaparin 40 MG/0.4 ML Syringe SUBCUT SCH (15:52)
[2020-12-01] MEDS: Codeine/guaiFENesin 10-100 MG/5 ML Syrup 5 ML Cup PO PRN (20:38)
[2020-12-01] MEDS: Amitriptyline 10 MG Tab PO SCH (20:38)
[2020-12-01] MEDS: atorvaSTATin 20 MG Tab PO SCH (20:38)
[2020-12-01] MEDS ORDERED: Pantoprazole 40 MG Tab.CR PO SCH (22:15)
[2020-12-01] MEDS ORDERED: Alum Hydrox/Mag Hydrox/Simeth 15 ML, Lidocaine 2% 15 ML PO ONE ×2 (22:29)
[2020-12-01] MEDS ORDERED: Lidocaine 2% Viscous Solution 15 ML Cup ONE (22:31)
[2020-12-01] MEDS ORDERED: Calcium Carbonate 500 MG Tab.Chew PO PRN (23:42)
[2020-12-01] MEDS: Calcium Carbonate 500 MG Tab.Chew PO PRN (23:57)
[2020-12-02] MEDS ORDERED: Acetaminophen/oxyCODONE 325-5 MG Tab PO PRN (00:18)
[2020-12-02] MEDS: Calcium Carbonate 500 MG Tab.Chew PO PRN (02:19)
--- NOTE | 2020-12-02 07:05 | PCM.SN.2 ---
- Free Text/Narrative Note: telephone calls 2 [facility] Ms. Sin has complaints of epigastric pains, "feels like a gas bubble", pain from epigastric area to right rib. denies chest pain, shortness of breath. O: vital signs T 95.9- heart rate varies from 37 to 60's- resp rate 18 blood pressure 114/65 O2 sat 94% on 2.4 l NC A: Epigastric distress, rib pain, bradycardia P: EKG- sinus jackson Epigastric pain- Protonix 40 mg po daily, GI cocktail once, TUMS prn Rib pain - Percocet 5-325 mg po every 4 hours as needed. continue present plan of care Time Documentation - Time Based Documentation Total Time Spent on the Date of the Encounter (Minutes): 20 Time Includes the Following: Communication with Other Health [employer], [employer] Documentation - Counseling Documentation Non Time Based Counseling Topic(s): Diagnostic Results
[2020-12-02] MEDS: Pantoprazole 40 MG Tab.CR PO SCH (07:41)
[2020-12-02] MEDS: Aspirin 81 MG Tab.EC PO SCH (08:42)
[2020-12-02] MEDS: Dexamethasone 4 MG/ML SDV IVPUSH SCH (08:42)
[2020-12-02] MEDS: Gemfibrozil 600 MG Tab PO SCH ×2 (08:42→21:04)
[2020-12-02] MEDS: Loratadine 10 MG Tab PO SCH (08:42)
[2020-12-02] MEDS: Benzonatate 100 MG Cap PO PRN (08:45)
[2020-12-02] MEDS: REMDESIVIR 100 MG in Sodium Chloride 0.9% 100 ML IV SCH (11:02)
--- NOTE | 2020-12-02 12:33 | PCM.PN ---
- General Info Date of Service: 12/02/20 Subjective Update: Overnight the patient had difficulty with epigastric discomfort. She received a proton pump inhibitor as well as a GI cocktail and eventually did get some relie f after Tums. No discomfort today. Symptomatically she is feeling better with less headache, less shortness of breath and less cough. Energy and appetite seem to be slowly improving. Dizziness is improving. Blood pressure and heart rate are both on the low side this morning so her antihypertensives were both held. Functional Status: Reports: Pain Controlled, Tolerating Diet - Review of Systems General: Denies: Fever - Patient Data Vitals - Most Recent: Last Vital Signs Temp 36.3 C 12/02/20 10:08 Pulse 54 L 12/02/20 10:08 Resp 16 12/02/20 10:08 BP 96/66 12/02/20 10:08 Pulse Ox 94 L 12/02/20 12:31 Weight - Most Recent: 110.677 kg I&O - Last 24 Hours: Intake & Output 12/01/20 12/02/20 12/02/20 22:59 06:59 14:59 Intake Total 720 100 Balance 720 100 Lab Results Last 24 Hours: Laboratory Results - last 24 hr 12/02/20 12/02/20 12/02/20 Range/Units 05:49 05:49 05:49 WBC 4.2 L (4.5-11.0) K/uL RBC 4.38 (3.30-5.50) M/uL Hgb 12.8 (12.0-15.0) g/dL Hct 38.3 (36.0-48.0) % MCV 87 (80-98) fL MCH 29 (27-31) pg MCHC 33 (32-36) % Plt Count 190 (150-400) K/uL D-Dimer, Quantitative 605.51 H (0.0-500.0) ng/mL Sodium 141 (140-148) mmol/L Potassium 4.6 (3.6-5.2) mmol/L Chloride 106 (100-108) mmol/L Carbon Dioxide 24 (21-32) mmol/L Anion Gap 10.7 (5.0-14.0) mmol/L BUN 42 H (7-18) mg/dL Creatinine 1.2 H (0.6-1.0) mg/dL Est Cr Clr Drug Dosing 54.54 mL/min Estimated GFR (MDRD) 48 L (>60) Glucose 138 H (74-106) mg/dL Calcium 8.9 (8.5-10.1) mg/dL Total Bilirubin 0.4 (0.2-1.0) mg/dL AST 62 H (15-37) U/L ALT 60 (12-78) U/L Alkaline Phosphatase 49 (46-116) U/L C-Reactive Protein 6.57 H (0.0-0.3) mg/dL Total Protein 6.6 (6.4-8.2) g/dL Albumin 2.9 L (3.4-5.0) g/dL Globulin 3.7 H (2.3-3.5) g/dL Albumin/Globulin Ratio 0.8 L (1.2-2.2) Med Orders - Current: Current Medications Acetaminophen (Acetaminophen 325 Mg Tab) 650 mg PO Q4H PRN PRN Reason: Pain (Mild 1-3)/fever Amitriptyline HCl (Amitriptyline 10 Mg Tab) 20 mg PO BEDTIME [facility] Last Admin: 12/01/20 20:38 Dose: 20 mg Documented by: Amlodipine Besylate (Amlodipine 5 Mg Tab) 5 mg PO DAILY [facility] Aspirin (Aspirin 81 Mg Tab.Ec) 81 mg PO DAILY [facility] Last Admin: 12/02/20 08:42 Dose: 81 mg Documented by: Atorvastatin Calcium (Atorvastatin 20 Mg Tab) 20 mg PO BEDTIME [facility] Last Admin: 12/01/20 20:38 Dose: 20 mg Documented by: Benzonatate (Benzonatate 100 Mg Cap) 100 mg PO TID PRN PRN Reason: Cough Last Admin: 12/02/20 08:45 Dose: 100 mg Documented by: Calcium Carbonate/Glycine (Calcium Carbonate 500 Mg Tab.Chew) 1,000 mg PO Q2H PRN PRN Reason: Indigestion Last Admin: 12/02/20 02:19 Dose: 1,000 mg Documented by: Dexamethasone (Dexamethasone 4 Mg/Ml Sdv) 6 mg IVPUSH DAILY [facility] Stop: 12/09/20 09:01 Last Admin: 12/02/20 08:42 Dose: 6 mg Documented by: Diclofenac Sodium (Diclofenac Sodium 1% Gel 100 Gm Tube) 0 gm TOP QID PRN PRN Reason: Pain Enoxaparin Sodium (Enoxaparin 40 Mg/0.4 Ml Syringe) 40 mg SUBCUT Q24H [facility] Last Admin: 12/01/20 15:52 Dose: 40 mg Documented by: Gemfibrozil (Gemfibrozil 600 Mg Tab) 600 mg PO BID [facility] Last Admin: 12/02/20 08:42 Dose: 600 mg Documented by: Guaifenesin/Codeine Phosphate (Codeine/Guaifenesin 10-100 Mg/5 Ml Syrup 5 Ml Cup) 10 ml PO Q6H PRN PRN Reason: Cough Last Admin: 12/01/20 20:38 Dose: 10 ml Documented by: Remdesivir 100 mg/ Sodium (Chloride) 100 mls @ 100 mls/hr IV Q24H [facility] Stop: 12/04/20 12:59 Last Admin: 12/02/20 11:02 Dose: 100 mls/hr Documented by: Loratadine (Loratadine 10 Mg Tab) 10 mg PO DAILY [facility] Last Admin: 12/02/20 08:42 Dose: 10 mg Documented by: Lorazepam (Lorazepam 2 Mg/Ml Sdv) 0.5 mg IVPUSH Q4H PRN PRN Reason: Nausea/Vomiting Metoprolol Succinate (Metoprolol Succinate 50 Mg Tab.Er) 100 mg PO DAILY [facility] Last Admin: 12/01/20 09:16 Dose: 100 mg Documented by: Ondansetron HCl (Ondansetron 4 Mg/2 Ml Sdv) 4 mg IV Q6H PRN PRN Reason: Nausea/Vomiting Ondansetron HCl (Ondansetron 4 Mg Tab.Dis) 4 mg PO Q6H PRN PRN Reason: Nausea able to take PO Oxycodone/Acetaminophen (Acetaminophen/Oxycodone 325-5 Mg Tab) 1 tab PO Q4H PRN PRN Reason: Pain (moderate 4-6) Pantoprazole Sodium (Pantoprazole 40 Mg Tab.Cr) 40 mg PO ACBREAKFAST [facility] Last Admin: 12/02/20 07:41 Dose: 40 mg Documented by: Senna/Docusate Sodium (Docusate Sodium/Sennosides 50-8.6 Mg Tab) 1 tab PO BID PRN PRN Reason: Constipation Discontinued Medications Acetaminophen (Acetaminophen 325 Mg Tab) 650 mg PO Q4H PRN PRN Reason: Fever Greater Than 101 Last Admin: 11/30/20 12:52 Dose: 650 mg Documented by: Calcium Carbonate/Glycine (Calcium Carbonate 500 Mg Tab.Chew) 500 mg PO Q2H PRN PRN Reason: Indigestion Al Hydroxide/Mg Hydroxide 15 (ml/ Lidocaine HCl 15 ml) 0 ml PO ONETIME ONE Stop: 12/01/20 22:30 Last Admin: 12/01/20 22:41 Dose: 15 ml Documented by: Guaifenesin/Dextromethorphan (Guaifenesin/Dextromethorphan 100-10 Mg/5 Ml Soln 10 Ml Cup) 10 ml PO Q4H PRN PRN Reason: Cough Last Admin: 12/01/20 00:36 Dose: 10 ml Documented by: Remdesivir 200 mg/ Sodium (Chloride) 250 mls @ 250 mls/hr IV ONETIME ONE Stop: 11/30/20 13:44 Last Admin: 11/30/20 12:53 Dose: 250 mls/hr Documented by: Lidocaine HCl (Lidocaine 2% Viscous Solution 15 Ml Cup) Confirm Administered Dose 15 ml .ROUTE .STK-MED ONE Stop: 12/01/20 22:32 Last Admin: 12/01/20 22:34 Dose: Not Given Documented by: Pantoprazole Sodium (Pantoprazole 40 Mg Tab.Cr) 40 mg PO DAILY [facility] Last Admin: 12/01/20 22:15 Dose: 40 mg Documented by: - Exam Quality Assessment: Supplemental Oxygen General: Alert, Oriented, Cooperative, No Acute Distress Lungs: Clear to Auscultation, Normal Respiratory Effort Cardiovascular: Regular Rate, Regular Rhythm GI/Abdominal Exam: Soft, No Distention Extremities: No Pedal Edema. No: Increased Warmth Psy/Mental Status: Alert, Normal Affect - Patient Data Lab Results Last 24 hrs: Laboratory Results - last 24 hr 12/02/20 12/02/20 12/02/20 Range/Units 05:49 05:49 05:49 WBC 4.2 L (4.5-11.0) K/uL RBC 4.38 (3.30-5.50) M/uL Hgb 12.8 (12.0-15.0) g/dL Hct 38.3 (36.0-48.0) % MCV 87 (80-98) fL MCH 29 (27-31) pg MCHC 33 (32-36) % Plt Count 190 (150-400) K/uL D-Dimer, Quantitative 605.51 H (0.0-500.0) ng/mL Sodium 141 (140-148) mmol/L Potassium 4.6 (3.6-5.2) mmol/L Chloride 106 (100-108) mmol/L Carbon Dioxide 24 (21-32) mmol/L Anion Gap 10.7 (5.0-14.0) mmol/L BUN 42 H (7-18) mg/dL Creatinine 1.2 H (0.6-1.0) mg/dL Est Cr Clr Drug Dosing 54.54 mL/min Estimated GFR (MDRD) 48 L (>60) Glucose 138 H (74-106) mg/dL Calcium 8.9 (8.5-10.1) mg/dL Total Bilirubin 0.4 (0.2-1.0) mg/dL AST 62 H (15-37) U/L ALT 60 (12-78) U/L Alkaline Phosphatase 49 (46-116) U/L C-Reactive Protein 6.57 H (0.0-0.3) mg/dL Total Protein 6.6 (6.4-8.2) g/dL Albumin 2.9 L (3.4-5.0) g/dL Globulin 3.7 H (2.3-3.5) g/dL Albumin/Globulin Ratio 0.8 L (1.2-2.2) Result Diagrams: 12/02/20 05:49 12/02/20 05:49 Sepsis Event Note - Evaluation Sepsis Screening Result: Sepsis Risk - Focused Exam Vital Signs: Vital Signs Temp Temp Pulse Resp BP BP Pulse Ox 12/02/20 12:31 94 L 12/02/20 10:08 36.3 C 54 L 16 96/66 92 L 12/02/20 08:32 49 L 92 L 12/02/20 07:38 35.7 C L 63 22 H 105/71 93 L 12/02/20 07:04 93 L 12/02/20 02:17 36.3 C 49 L 16 119/62 93 L 12/02/20 01:02 91 L - Problem List Review Problem List Initiated/Reviewed/Updated: Yes - My Orders Last 24 Hours: My Active Orders 12/01/20 12:00 Remdesivir 100 mg Sodium Chloride 0.9% [Normal Saline] 100 ml IV Q24H 12/03/20 05:00 COMPREHENSIVE METABOLIC PN,CMP [CHEM] Timed - Plan Plan:: ASSESSMENT AND PLAN - COVID-19 pneumonia-complicated by acute respiratory failure with hypoxia. Symptomatically she is mildly better. Slightly better with supplemental oxygen requirements. Tolerating treatment so far. -Dexamethasone 6 mg daily (day 3) -Remdesivir x5 days -Enoxaparin 40 mg daily -CMP daily and inflammatory labs every 2 to 3 days -Symptomatic management of cough and fever -Covid isolation (symptom onset 11/23) -Encourage vaccination in 3 months Bilateral carpal tunnel surgery-recovering well. Dressings removed and no concerns about the surgical sites. Stage IIIb chronic kidney disease-creatinine stable and near baseline. Essential hypertension-blood pressure acceptable so far. -Continue home medications Obesity with BMI 30-40- Maintenance issues - -DVT prophylaxis-enoxaparin -GI prophylaxis-not indicated -Nutrition-regular Disposition -I anticipate discharge home after the hospital stay Primary care physician -JACKY Toribio M.D.
[2020-12-02] MEDS: Enoxaparin 40 MG/0.4 ML Syringe SUBCUT SCH (15:24)
[2020-12-02] MEDS: atorvaSTATin 20 MG Tab PO SCH (21:04)
[2020-12-02] MEDS: Amitriptyline 10 MG Tab PO SCH (21:04)
[2020-12-02] MEDS: Codeine/guaiFENesin 10-100 MG/5 ML Syrup 5 ML Cup PO PRN (21:04)
[2020-12-03] MEDS: Pantoprazole 40 MG Tab.CR PO SCH (07:54)
[2020-12-03] MEDS: Dexamethasone 4 MG/ML SDV IVPUSH SCH (09:16)
[2020-12-03] MEDS: Loratadine 10 MG Tab PO SCH (09:17)
[2020-12-03] MEDS: Gemfibrozil 600 MG Tab PO SCH ×2 (09:17→21:44)
[2020-12-03] MEDS: Aspirin 81 MG Tab.EC PO SCH (09:17)
[2020-12-03] MEDS: Bacitracin Oint 1 GM U/D Packet TOP PRN (09:17)
[2020-12-03] MEDS: REMDESIVIR 100 MG in Sodium Chloride 0.9% 100 ML IV SCH (12:15)
[2020-12-03] MEDS: Enoxaparin 40 MG/0.4 ML Syringe SUBCUT SCH (15:29)
--- NOTE | 2020-12-03 15:34 | PCM.PN ---
- General Info Date of Service: 12/03/20 Subjective Update: No acute events overnight. Still having some episodes of dizziness. No nausea or diarrhea. Appetite has been okay. Still requiring supplemental oxygen which is about the same as it has been. Functional Status: Reports: Pain Controlled, Tolerating Diet - Review of Systems General: Denies: Fever Neurological: Reports: Dizziness - Patient Data Vitals - Most Recent: Last Vital Signs Temp 36.3 C 12/03/20 11:49 Pulse 79 12/03/20 11:49 Resp 16 12/03/20 11:49 BP 93/63 12/03/20 11:49 Pulse Ox 94 L 12/03/20 13:37 Weight - Most Recent: 110.677 kg Lab Results Last 24 Hours: Laboratory Results - last 24 hr 12/03/20 Range/Units 04:18 Sodium 144 (140-148) mmol/L Potassium 4.4 (3.6-5.2) mmol/L Chloride 108 (100-108) mmol/L Carbon Dioxide 25 (21-32) mmol/L Anion Gap 10.6 (5.0-14.0) mmol/L BUN 41 H (7-18) mg/dL Creatinine 1.2 H (0.6-1.0) mg/dL Est Cr Clr Drug Dosing 54.54 mL/min Estimated GFR (MDRD) 48 L (>60) Glucose 146 H (74-106) mg/dL Calcium 9.0 (8.5-10.1) mg/dL Total Bilirubin 0.4 (0.2-1.0) mg/dL AST 38 H (15-37) U/L ALT 53 (12-78) U/L Alkaline Phosphatase 51 (46-116) U/L Total Protein 6.4 (6.4-8.2) g/dL Albumin 2.8 L (3.4-5.0) g/dL Globulin 3.6 H (2.3-3.5) g/dL Albumin/Globulin Ratio 0.8 L (1.2-2.2) Med Orders - Current: Current Medications Acetaminophen (Acetaminophen 325 Mg Tab) 650 mg PO Q4H PRN PRN Reason: Pain (Mild 1-3)/fever Amitriptyline HCl (Amitriptyline 10 Mg Tab) 20 mg PO BEDTIME [facility] Last Admin: 12/02/20 21:04 Dose: 20 mg Documented by: Amlodipine Besylate (Amlodipine 5 Mg Tab) 5 mg PO DAILY [facility] Aspirin (Aspirin 81 Mg Tab.Ec) 81 mg PO DAILY [facility] Last Admin: 12/03/20 09:17 Dose: 81 mg Documented by: Atorvastatin Calcium (Atorvastatin 20 Mg Tab) 20 mg PO BEDTIME [facility] Last Admin: 12/02/20 21:04 Dose: 20 mg Documented by: Bacitracin (Bacitracin Oint 1 Gm U/D Packet) 0 dose TOP BID PRN PRN Reason: Wound Care Last Admin: 12/03/20 09:17 Dose: 1 dose Documented by: Benzonatate (Benzonatate 100 Mg Cap) 100 mg PO TID PRN PRN Reason: Cough Last Admin: 12/02/20 08:45 Dose: 100 mg Documented by: Calcium Carbonate/Glycine (Calcium Carbonate 500 Mg Tab.Chew) 1,000 mg PO Q2H PRN PRN Reason: Indigestion Last Admin: 12/02/20 02:19 Dose: 1,000 mg Documented by: Dexamethasone (Dexamethasone 4 Mg/Ml Sdv) 6 mg IVPUSH DAILY [facility] Stop: 12/09/20 09:01 Last Admin: 12/03/20 09:16 Dose: 6 mg Documented by: Diclofenac Sodium (Diclofenac Sodium 1% Gel 100 Gm Tube) 0 gm TOP QID PRN PRN Reason: Pain Enoxaparin Sodium (Enoxaparin 40 Mg/0.4 Ml Syringe) 40 mg SUBCUT Q24H [facility] Last Admin: 12/03/20 15:29 Dose: 40 mg Documented by: Gemfibrozil (Gemfibrozil 600 Mg Tab) 600 mg PO BID [facility] Last Admin: 12/03/20 09:17 Dose: 600 mg Documented by: Guaifenesin/Codeine Phosphate (Codeine/Guaifenesin 10-100 Mg/5 Ml Syrup 5 Ml Cup) 10 ml PO Q6H PRN PRN Reason: Cough Last Admin: 12/02/20 21:04 Dose: 10 ml Documented by: Remdesivir 100 mg/ Sodium (Chloride) 100 mls @ 100 mls/hr IV Q24H [facility] Stop: 12/04/20 12:59 Last Admin: 12/03/20 12:15 Dose: 100 mls/hr Documented by: Loratadine (Loratadine 10 Mg Tab) 10 mg PO DAILY [facility] Last Admin: 12/03/20 09:17 Dose: 10 mg Documented by: Lorazepam (Lorazepam 2 Mg/Ml Sdv) 0.5 mg IVPUSH Q4H PRN PRN Reason: Nausea/Vomiting Metoprolol Succinate (Metoprolol Succinate 50 Mg Tab.Er) 100 mg PO DAILY [facility] Last Admin: 12/01/20 09:16 Dose: 100 mg Documented by: Ondansetron HCl (Ondansetron 4 Mg/2 Ml Sdv) 4 mg IV Q6H PRN PRN Reason: Nausea/Vomiting Ondansetron HCl (Ondansetron 4 Mg Tab.Dis) 4 mg PO Q6H PRN PRN Reason: Nausea able to take PO Oxycodone/Acetaminophen (Acetaminophen/Oxycodone 325-5 Mg Tab) 1 tab PO Q4H PRN PRN Reason: Pain (moderate 4-6) Pantoprazole Sodium (Pantoprazole 40 Mg Tab.Cr) 40 mg PO ACBREAKFAST [facility] Last Admin: 12/03/20 07:54 Dose: 40 mg Documented by: Senna/Docusate Sodium (Docusate Sodium/Sennosides 50-8.6 Mg Tab) 1 tab PO BID PRN PRN Reason: Constipation Discontinued Medications Acetaminophen (Acetaminophen 325 Mg Tab) 650 mg PO Q4H PRN PRN Reason: Fever Greater Than 101 Last Admin: 11/30/20 12:52 Dose: 650 mg Documented by: Calcium Carbonate/Glycine (Calcium Carbonate 500 Mg Tab.Chew) 500 mg PO Q2H PRN PRN Reason: Indigestion Al Hydroxide/Mg Hydroxide 15 (ml/ Lidocaine HCl 15 ml) 0 ml PO ONETIME ONE Stop: 12/01/20 22:30 Last Admin: 12/01/20 22:41 Dose: 15 ml Documented by: Guaifenesin/Dextromethorphan (Guaifenesin/Dextromethorphan 100-10 Mg/5 Ml Soln 10 Ml Cup) 10 ml PO Q4H PRN PRN Reason: Cough Last Admin: 12/01/20 00:36 Dose: 10 ml Documented by: Remdesivir 200 mg/ Sodium (Chloride) 250 mls @ 250 mls/hr IV ONETIME ONE Stop: 11/30/20 13:44 Last Admin: 11/30/20 12:53 Dose: 250 mls/hr Documented by: Lidocaine HCl (Lidocaine 2% Viscous Solution 15 Ml Cup) Confirm Administered Dose 15 ml .ROUTE .STK-MED ONE Stop: 12/01/20 22:32 Last Admin: 12/01/20 22:34 Dose: Not Given Documented by: Pantoprazole Sodium (Pantoprazole 40 Mg Tab.Cr) 40 mg PO DAILY [facility] Last Admin: 12/01/20 22:15 Dose: 40 mg Documented by: - Exam Quality Assessment: Supplemental Oxygen General: Alert, Oriented, Cooperative, No Acute Distress Lungs: Normal Respiratory Effort GI/Abdominal Exam: Soft, No Distention Extremities: No Pedal Edema Skin: Warm, Dry Psy/Mental Status: Alert, Normal Affect - Patient Data Lab Results Last 24 hrs: Laboratory Results - last 24 hr 12/03/20 Range/Units 04:18 Sodium 144 (140-148) mmol/L Potassium 4.4 (3.6-5.2) mmol/L Chloride 108 (100-108) mmol/L Carbon Dioxide 25 (21-32) mmol/L Anion Gap 10.6 (5.0-14.0) mmol/L BUN 41 H (7-18) mg/dL Creatinine 1.2 H (0.6-1.0) mg/dL Est Cr Clr Drug Dosing 54.54 mL/min Estimated GFR (MDRD) 48 L (>60) Glucose 146 H (74-106) mg/dL Calcium 9.0 (8.5-10.1) mg/dL Total Bilirubin 0.4 (0.2-1.0) mg/dL AST 38 H (15-37) U/L ALT 53 (12-78) U/L Alkaline Phosphatase 51 (46-116) U/L Total Protein 6.4 (6.4-8.2) g/dL Albumin 2.8 L (3.4-5.0) g/dL Globulin 3.6 H (2.3-3.5) g/dL Albumin/Globulin Ratio 0.8 L (1.2-2.2) Result Diagrams: 12/02/20 05:49 12/03/20 04:18 Sepsis Event Note - Evaluation Sepsis Screening Result: No Definite Risk - Focused Exam Vital Signs: Vital Signs Temp Pulse Resp BP Pulse Ox 12/03/20 13:37 94 L 12/03/20 11:49 36.3 C 79 16 93/63 97 12/03/20 07:42 36.2 C 68 16 102/74 93 L 12/03/20 06:59 93 L - Problem List Review Problem List Initiated/Reviewed/Updated: Yes - My Orders Last 24 Hours: My Active Orders 12/04/20 05:00 COMPREHENSIVE METABOLIC PN,CMP [CHEM] Timed 12/04/20 05:11 C-REACTIVE PROTEIN [CHEM] AM D-DIMER QUANTITATIVE [COAG] AM - Plan Plan:: ASSESSMENT AND PLAN - COVID-19 pneumonia-complicated by acute respiratory failure with hypoxia. Symptomatically she is mildly better. Still requiring supplemental oxygen though her respiratory status has remained stable. -Dexamethasone 6 mg daily (day 4) -Remdesivir x5 days -Enoxaparin 40 mg daily -CMP daily and inflammatory labs every 2 to 3 days -Symptomatic management of cough and fever -Covid isolation (symptom onset 11/23) -Encourage vaccination in 3 months Bilateral carpal tunnel surgery-recovering well. Dressings removed and no concerns about the surgical sites. Stage IIIb chronic kidney disease-creatinine stable and near baseline. Essential hypertension-blood pressure on the low side with dizziness. -Hold metoprolol and amlodipine Obesity with BMI 30-40- Maintenance issues - -DVT prophylaxis-enoxaparin -GI prophylaxis-not indicated -Nutrition-regular Disposition -I anticipate discharge home after the hospital stay Dhiraj Elliott M.D.
[2020-12-03] MEDS: atorvaSTATin 20 MG Tab PO SCH (21:34)
[2020-12-03] MEDS: Amitriptyline 10 MG Tab PO SCH (21:35)
[2020-12-04] MEDS: Pantoprazole 40 MG Tab.CR PO SCH (09:17)
[2020-12-04] MEDS: Loratadine 10 MG Tab PO SCH (09:17)
[2020-12-04] MEDS: Dexamethasone 4 MG/ML SDV IVPUSH SCH (09:18)
[2020-12-04] MEDS: Aspirin 81 MG Tab.EC PO SCH (09:18)
[2020-12-04] MEDS: Gemfibrozil 600 MG Tab PO SCH ×2 (09:18→20:48)
--- NOTE | 2020-12-04 10:52 | PCM.PN ---
- General Info Date of Service: 12/04/20 Subjective Update: No acute events overnight. Patient feels a little bit better again today. Dizziness is less. Less shortness of breath. Occasional dry cough. No diarrhea. Still requiring about 3 L of supplemental oxygen. Appetite is not quite as good today. Inflammatory labs show slight improvement in D-dimer and CRP. - Review of Systems General: Reports: Weakness Pulmonary: Reports: Shortness of Breath - Patient Data Vitals - Most Recent: Last Vital Signs Temp 36.3 C 12/04/20 07:23 Pulse 84 12/04/20 07:23 Resp 18 12/04/20 07:23 BP 91/63 12/04/20 07:23 Pulse Ox 92 L 12/04/20 08:03 Weight - Most Recent: 110.677 kg I&O - Last 24 Hours: Intake & Output 12/03/20 12/04/20 12/04/20 22:59 06:59 14:59 Intake Total 600 Balance 600 Lab Results Last 24 Hours: Laboratory Results - last 24 hr 12/04/20 12/04/20 12/04/20 Range/Units 04:20 04:20 04:20 D-Dimer, Quantitative 578.42 H (0.0-500.0) ng/mL Sodium 144 (140-148) mmol/L Potassium 4.2 (3.6-5.2) mmol/L Chloride 107 (100-108) mmol/L Carbon Dioxide 24 (21-32) mmol/L Anion Gap 13.4 (5.0-14.0) mmol/L BUN 35 H (7-18) mg/dL Creatinine 1.2 H (0.6-1.0) mg/dL Est Cr Clr Drug Dosing 54.54 mL/min Estimated GFR (MDRD) 48 L (>60) Glucose 114 H (74-106) mg/dL Calcium 9.0 (8.5-10.1) mg/dL Total Bilirubin 0.6 (0.2-1.0) mg/dL AST 27 (15-37) U/L ALT 45 (12-78) U/L Alkaline Phosphatase 53 (46-116) U/L C-Reactive Protein 3.48 H (0.0-0.3) mg/dL Total Protein 6.4 (6.4-8.2) g/dL Albumin 2.8 L (3.4-5.0) g/dL Globulin 3.6 H (2.3-3.5) g/dL Albumin/Globulin Ratio 0.8 L (1.2-2.2) Med Orders - Current: Current Medications Acetaminophen (Acetaminophen 325 Mg Tab) 650 mg PO Q4H PRN PRN Reason: Pain (Mild 1-3)/fever Amitriptyline HCl (Amitriptyline 10 Mg Tab) 20 mg PO BEDTIME [facility] Last Admin: 12/03/20 21:35 Dose: 20 mg Documented by: Amlodipine Besylate (Amlodipine 5 Mg Tab) 5 mg PO DAILY [facility] Aspirin (Aspirin 81 Mg Tab.Ec) 81 mg PO DAILY [facility] Last Admin: 12/04/20 09:18 Dose: 81 mg Documented by: Atorvastatin Calcium (Atorvastatin 20 Mg Tab) 20 mg PO BEDTIME [facility] Last Admin: 12/03/20 21:34 Dose: 20 mg Documented by: Bacitracin (Bacitracin Oint 1 Gm U/D Packet) 0 dose TOP BID PRN PRN Reason: Wound Care Last Admin: 12/03/20 09:17 Dose: 1 dose Documented by: Benzonatate (Benzonatate 100 Mg Cap) 100 mg PO TID PRN PRN Reason: Cough Last Admin: 12/02/20 08:45 Dose: 100 mg Documented by: Calcium Carbonate/Glycine (Calcium Carbonate 500 Mg Tab.Chew) 1,000 mg PO Q2H PRN PRN Reason: Indigestion Last Admin: 12/02/20 02:19 Dose: 1,000 mg Documented by: Dexamethasone (Dexamethasone 4 Mg/Ml Sdv) 6 mg IVPUSH DAILY [facility] Stop: 12/09/20 09:01 Last Admin: 12/04/20 09:18 Dose: 6 mg Documented by: Diclofenac Sodium (Diclofenac Sodium 1% Gel 100 Gm Tube) 0 gm TOP QID PRN PRN Reason: Pain Enoxaparin Sodium (Enoxaparin 40 Mg/0.4 Ml Syringe) 40 mg SUBCUT Q24H [facility] Last Admin: 12/03/20 15:29 Dose: 40 mg Documented by: Gemfibrozil (Gemfibrozil 600 Mg Tab) 600 mg PO BID [facility] Last Admin: 12/04/20 09:18 Dose: 600 mg Documented by: Guaifenesin/Codeine Phosphate (Codeine/Guaifenesin 10-100 Mg/5 Ml Syrup 5 Ml Cup) 10 ml PO Q6H PRN PRN Reason: Cough Last Admin: 12/02/20 21:04 Dose: 10 ml Documented by: Remdesivir 100 mg/ Sodium (Chloride) 100 mls @ 100 mls/hr IV Q24H [facility] Stop: 12/04/20 12:59 Last Admin: 12/03/20 12:15 Dose: 100 mls/hr Documented by: Loratadine (Loratadine 10 Mg Tab) 10 mg PO DAILY [facility] Last Admin: 12/04/20 09:17 Dose: 10 mg Documented by: Lorazepam (Lorazepam 2 Mg/Ml Sdv) 0.5 mg IVPUSH Q4H PRN PRN Reason: Nausea/Vomiting Metoprolol Succinate (Metoprolol Succinate 50 Mg Tab.Er) 100 mg PO DAILY [facility] Last Admin: 12/01/20 09:16 Dose: 100 mg Documented by: Ondansetron HCl (Ondansetron 4 Mg/2 Ml Sdv) 4 mg IV Q6H PRN PRN Reason: Nausea/Vomiting Ondansetron HCl (Ondansetron 4 Mg Tab.Dis) 4 mg PO Q6H PRN PRN Reason: Nausea able to take PO Oxycodone/Acetaminophen (Acetaminophen/Oxycodone 325-5 Mg Tab) 1 tab PO Q4H PRN PRN Reason: Pain (moderate 4-6) Pantoprazole Sodium (Pantoprazole 40 Mg Tab.Cr) 40 mg PO ACBREAKFAST [facility] Last Admin: 12/04/20 09:17 Dose: 40 mg Documented by: Senna/Docusate Sodium (Docusate Sodium/Sennosides 50-8.6 Mg Tab) 1 tab PO BID PRN PRN Reason: Constipation Last Admin: 12/04/20 09:17 Dose: 1 tab Documented by: Discontinued Medications Acetaminophen (Acetaminophen 325 Mg Tab) 650 mg PO Q4H PRN PRN Reason: Fever Greater Than 101 Last Admin: 11/30/20 12:52 Dose: 650 mg Documented by: Calcium Carbonate/Glycine (Calcium Carbonate 500 Mg Tab.Chew) 500 mg PO Q2H PRN PRN Reason: Indigestion Al Hydroxide/Mg Hydroxide 15 (ml/ Lidocaine HCl 15 ml) 0 ml PO ONETIME ONE Stop: 12/01/20 22:30 Last Admin: 12/01/20 22:41 Dose: 15 ml Documented by: Guaifenesin/Dextromethorphan (Guaifenesin/Dextromethorphan 100-10 Mg/5 Ml Soln 10 Ml Cup) 10 ml PO Q4H PRN PRN Reason: Cough Last Admin: 12/01/20 00:36 Dose: 10 ml Documented by: Remdesivir 200 mg/ Sodium (Chloride) 250 mls @ 250 mls/hr IV ONETIME [facility] Stop: 11/30/20 13:44 Last Admin: 11/30/20 12:53 Dose: 250 mls/hr Documented by: Lidocaine HCl (Lidocaine 2% Viscous Solution 15 Ml Cup) Confirm Administered Dose 15 ml .ROUTE .STK-MED ONE Stop: 12/01/20 22:32 Last Admin: 12/01/20 22:34 Dose: Not Given Documented by: Pantoprazole Sodium (Pantoprazole 40 Mg Tab.Cr) 40 mg PO DAILY [facility] Last Admin: 12/01/20 22:15 Dose: 40 mg Documented by: - Exam Quality Assessment: Supplemental Oxygen General: Alert, Oriented, Cooperative, No Acute Distress Lungs: Normal Respiratory Effort Psy/Mental Status: Alert, Normal Affect - Patient Data Lab Results Last 24 hrs: Laboratory Results - last 24 hr 12/04/20 12/04/20 12/04/20 Range/Units 04:20 04:20 04:20 D-Dimer, Quantitative 578.42 H (0.0-500.0) ng/mL Sodium 144 (140-148) mmol/L Potassium 4.2 (3.6-5.2) mmol/L Chloride 107 (100-108) mmol/L Carbon Dioxide 24 (21-32) mmol/L Anion Gap 13.4 (5.0-14.0) mmol/L BUN 35 H (7-18) mg/dL Creatinine 1.2 H (0.6-1.0) mg/dL Est Cr Clr Drug Dosing 54.54 mL/min Estimated GFR (MDRD) 48 L (>60) Glucose 114 H (74-106) mg/dL Calcium 9.0 (8.5-10.1) mg/dL Total Bilirubin 0.6 (0.2-1.0) mg/dL AST 27 (15-37) U/L ALT 45 (12-78) U/L Alkaline Phosphatase 53 (46-116) U/L C-Reactive Protein 3.48 H (0.0-0.3) mg/dL Total Protein 6.4 (6.4-8.2) g/dL Albumin 2.8 L (3.4-5.0) g/dL Globulin 3.6 H (2.3-3.5) g/dL Albumin/Globulin Ratio 0.8 L (1.2-2.2) Result Diagrams: 12/02/20 05:49 12/04/20 04:20 Sepsis Event Note - Evaluation Sepsis Screening Result: No Definite Risk - Focused Exam Vital Signs: Vital Signs Temp Temp Pulse Resp BP Pulse Ox Pulse Ox 12/04/20 08:03 92 L 12/04/20 07:24 91 L 12/04/20 07:23 36.3 C 84 18 91/63 93 L 12/04/20 03:00 36.0 C L 72 16 108/68 92 L 12/04/20 01:30 92 L 12/03/20 23:00 36.2 C 60 18 107/72 94 L - Problem List Review Problem List Initiated/Reviewed/Updated: Yes - Plan Plan:: ASSESSMENT AND PLAN - COVID-19 pneumonia-complicated by acute respiratory failure with hypoxia. Slowly improving. Respiratory status stable to slightly improved. Still requiring supplemental oxygen. -Dexamethasone 6 mg daily (day 5) -Remdesivir x5 days (final day today) -Enoxaparin 40 mg daily -CMP daily and inflammatory labs every 2 to 3 days -Symptomatic management of cough and fever -Covid isolation (symptom onset 11/23) -Encourage vaccination in 3 months Bilateral carpal tunnel surgery-recovering well. Dressings removed and no concerns about the surgical sites. Stage IIIb chronic kidney disease-creatinine stable and near baseline. Essential hypertension-blood pressure on the low side with dizziness. -Continue to hold metoprolol and amlodipine Obesity with BMI 30-40- Maintenance issues - -DVT prophylaxis-enoxaparin -GI prophylaxis-not indicated -Nutrition-regular Disposition -I anticipate discharge home after the hospital stay, possibly tomorrow if stable overnight. She will likely need home oxygen. Dhiraj Elliott M.D.
[2020-12-04] MEDS: REMDESIVIR 100 MG in Sodium Chloride 0.9% 100 ML IV SCH (11:41)
[2020-12-04] MEDS: Enoxaparin 40 MG/0.4 ML Syringe SUBCUT SCH (16:48)
[2020-12-04] MEDS: Amitriptyline 10 MG Tab PO SCH (20:47)
[2020-12-04] MEDS: atorvaSTATin 20 MG Tab PO SCH (20:47)
[2020-12-05] MEDS: Pantoprazole 40 MG Tab.CR PO SCH (08:21)
[2020-12-05] MEDS: Gemfibrozil 600 MG Tab PO SCH ×2 (08:22→20:48)
[2020-12-05] MEDS: Loratadine 10 MG Tab PO SCH (08:22)
[2020-12-05] MEDS: Aspirin 81 MG Tab.EC PO SCH (08:22)
[2020-12-05] MEDS: Dexamethasone 4 MG/ML SDV IVPUSH SCH (08:23)
--- NOTE | 2020-12-05 10:54 | PCM.PN ---
- General Info Date of Service: 12/05/20 Subjective Update: There were no acute events overnight. She did have an episode of dizziness while trying to get up to standing yesterday. No significant dizziness when she is sitting but it happens very quickly with standing. Shortness of breath is stable. Cough is fairly minimal. Sleeping well. Appetite has been good. Still requiring 3 L of oxygen which is essentially unchanged during the hospital stay. Functional Status: Reports: Tolerating Diet - Review of Systems Neurological: Reports: Dizziness - Patient Data Vitals - Most Recent: Last Vital Signs Temp 36.4 C 12/05/20 07:00 Pulse 83 12/05/20 07:00 Resp 18 12/05/20 07:00 BP 118/81 12/05/20 07:00 Pulse Ox 91 L 12/05/20 07:53 Weight - Most Recent: 110.677 kg I&O - Last 24 Hours: Intake & Output 12/04/20 12/05/20 12/05/20 22:59 06:59 14:59 Intake Total 420 Balance 420 Med Orders - Current: Current Medications Acetaminophen (Acetaminophen 325 Mg Tab) 650 mg PO Q4H PRN PRN Reason: Pain (Mild 1-3)/fever Amitriptyline HCl (Amitriptyline 10 Mg Tab) 20 mg PO BEDTIME [facility] Last Admin: 12/04/20 20:47 Dose: 20 mg Documented by: Amlodipine Besylate (Amlodipine 5 Mg Tab) 5 mg PO DAILY [facility] Aspirin (Aspirin 81 Mg Tab.Ec) 81 mg PO DAILY [facility] Last Admin: 12/05/20 08:22 Dose: 81 mg Documented by: Atorvastatin Calcium (Atorvastatin 20 Mg Tab) 20 mg PO BEDTIME [facility] Last Admin: 12/04/20 20:47 Dose: 20 mg Documented by: Bacitracin (Bacitracin Oint 1 Gm U/D Packet) 0 dose TOP BID PRN PRN Reason: Wound Care Last Admin: 12/03/20 09:17 Dose: 1 dose Documented by: Benzonatate (Benzonatate 100 Mg Cap) 100 mg PO TID PRN PRN Reason: Cough Last Admin: 12/02/20 08:45 Dose: 100 mg Documented by: Calcium Carbonate/Glycine (Calcium Carbonate 500 Mg Tab.Chew) 1,000 mg PO Q2H PRN PRN Reason: Indigestion Last Admin: 12/02/20 02:19 Dose: 1,000 mg Documented by: Dexamethasone (Dexamethasone 4 Mg/Ml Sdv) 6 mg IVPUSH DAILY [facility] Stop: 12/09/20 09:01 Last Admin: 12/05/20 08:23 Dose: 6 mg Documented by: Diclofenac Sodium (Diclofenac Sodium 1% Gel 100 Gm Tube) 0 gm TOP QID PRN PRN Reason: Pain Enoxaparin Sodium (Enoxaparin 40 Mg/0.4 Ml Syringe) 40 mg SUBCUT Q24H [facility] Last Admin: 12/04/20 16:48 Dose: 40 mg Documented by: Gemfibrozil (Gemfibrozil 600 Mg Tab) 600 mg PO BID [facility] Last Admin: 12/05/20 08:22 Dose: 600 mg Documented by: Guaifenesin/Codeine Phosphate (Codeine/Guaifenesin 10-100 Mg/5 Ml Syrup 5 Ml Cup) 10 ml PO Q6H PRN PRN Reason: Cough Last Admin: 12/02/20 21:04 Dose: 10 ml Documented by: Loratadine (Loratadine 10 Mg Tab) 10 mg PO DAILY [facility] Last Admin: 12/05/20 08:22 Dose: 10 mg Documented by: Lorazepam (Lorazepam 2 Mg/Ml Sdv) 0.5 mg IVPUSH Q4H PRN PRN Reason: Nausea/Vomiting Metoprolol Succinate (Metoprolol Succinate 50 Mg Tab.Er) 100 mg PO DAILY [facility] Last Admin: 12/01/20 09:16 Dose: 100 mg Documented by: Ondansetron HCl (Ondansetron 4 Mg/2 Ml Sdv) 4 mg IV Q6H PRN PRN Reason: Nausea/Vomiting Ondansetron HCl (Ondansetron 4 Mg Tab.Dis) 4 mg PO Q6H PRN PRN Reason: Nausea able to take PO Oxycodone/Acetaminophen (Acetaminophen/Oxycodone 325-5 Mg Tab) 1 tab PO Q4H PRN PRN Reason: Pain (moderate 4-6) Pantoprazole Sodium (Pantoprazole 40 Mg Tab.Cr) 40 mg PO ACBREAKFAST [facility] Last Admin: 12/05/20 08:21 Dose: 40 mg Documented by: Senna/Docusate Sodium (Docusate Sodium/Sennosides 50-8.6 Mg Tab) 1 tab PO BID PRN PRN Reason: Constipation Last Admin: 12/04/20 09:17 Dose: 1 tab Documented by: Discontinued Medications Acetaminophen (Acetaminophen 325 Mg Tab) 650 mg PO Q4H PRN PRN Reason: Fever Greater Than 101 Last Admin: 11/30/20 12:52 Dose: 650 mg Documented by: Calcium Carbonate/Glycine (Calcium Carbonate 500 Mg Tab.Chew) 500 mg PO Q2H PRN PRN Reason: Indigestion Al Hydroxide/Mg Hydroxide 15 (ml/ Lidocaine HCl 15 ml) 0 ml PO ONETIME ONE Stop: 12/01/20 22:30 Last Admin: 12/01/20 22:41 Dose: 15 ml Documented by: Guaifenesin/Dextromethorphan (Guaifenesin/Dextromethorphan 100-10 Mg/5 Ml Soln 10 Ml Cup) 10 ml PO Q4H PRN PRN Reason: Cough Last Admin: 12/01/20 00:36 Dose: 10 ml Documented by: Remdesivir 200 mg/ Sodium (Chloride) 250 mls @ 250 mls/hr IV ONETIME ONE Stop: 11/30/20 13:44 Last Admin: 11/30/20 12:53 Dose: 250 mls/hr Documented by: Remdesivir 100 mg/ Sodium (Chloride) 100 mls @ 100 mls/hr IV Q24H [facility] Stop: 12/04/20 12:59 Last Admin: 12/04/20 11:41 Dose: 100 mls/hr Documented by: Lidocaine HCl (Lidocaine 2% Viscous Solution 15 Ml Cup) Confirm Administered Dose 15 ml .ROUTE .STK-MED ONE Stop: 12/01/20 22:32 Last Admin: 12/01/20 22:34 Dose: Not Given Documented by: Pantoprazole Sodium (Pantoprazole 40 Mg Tab.Cr) 40 mg PO DAILY [facility] Last Admin: 12/01/20 22:15 Dose: 40 mg Documented by: - Exam Quality Assessment: Supplemental Oxygen General: Alert, Oriented, Cooperative, No Acute Distress Lungs: Normal Respiratory Effort. No: Wheezing GI/Abdominal Exam: Soft, No Distention Extremities: No Pedal Edema. No: Increased Warmth Psy/Mental Status: Alert, Normal Affect - Patient Data Result Diagrams: 12/02/20 05:49 12/04/20 04:20 Sepsis Event Note - Evaluation Sepsis Screening Result: No Definite Risk - Focused Exam Vital Signs: Vital Signs Temp Temp Pulse Resp BP Pulse Ox 12/05/20 07:53 91 L 12/05/20 07:00 36.4 C 83 18 118/81 93 L 12/05/20 03:10 93 L 12/05/20 03:00 35.7 C L 73 16 106/73 92 L 12/04/20 23:00 36.4 C 74 18 108/74 94 L - Problem List Review Problem List Initiated/Reviewed/Updated: Yes - My Orders Last 24 Hours: My Active Orders 12/05/20 10:54 PT Evaluation and Treatment [CONS] Routine 12/06/20 05:00 BASIC METABOLIC PANEL,BMP [CHEM] Timed CBC W/O DIFF,HEMOGRAM [HEME] Timed (1) CRP [C-REACTIVE PROTEIN] [CHEM] Timed D-DIMER QUANTITATIVE [COAG] Timed - Plan Plan:: ASSESSMENT AND PLAN - COVID-19 pneumonia-complicated by acute respiratory failure with hypoxia. Slowly improving. Respiratory status stable to slightly improved. Still requiring 3 L supplemental oxygen. Still quite dizzy anytime she tries to stand up. -Dexamethasone 6 mg daily (day 6) -Remdesivir x5 days complete -Enoxaparin 40 mg daily -inflammatory labs every 2 to 3 days -Symptomatic management of cough and fever -Covid isolation (symptom onset 11/23) -Encourage vaccination in 3 months Bilateral carpal tunnel surgery-recovering well. Dressings removed and no concerns about the surgical sites. Stage IIIb chronic kidney disease-creatinine stable and near baseline. Essential hypertension-blood pressure on the low side with dizziness. Her home medications have been discontinued and can be restarted when her blood pressure starts to rise. -Restart metoprolol and amlodipine as blood pressure indicates Obesity with BMI 30-40- Maintenance issues - -DVT prophylaxis-enoxaparin -GI prophylaxis-not indicated -Nutrition-regular Disposition -I anticipate discharge home after the hospital stay, hopefully in the next day or 2 if her dizziness improves and oxygenation shows at least a little bit of improvement Dhiraj Elliott M.D.
[2020-12-05] MEDS: Metoprolol Succinate 50 MG Tab.ER PO SCH (11:34)
[2020-12-05] MEDS: Bacitracin Oint 1 GM U/D Packet TOP PRN (11:39)
[2020-12-05] MEDS: Enoxaparin 40 MG/0.4 ML Syringe SUBCUT SCH (15:17)
[2020-12-05] MEDS: Amitriptyline 10 MG Tab PO SCH (20:48)
[2020-12-05] MEDS: atorvaSTATin 20 MG Tab PO SCH (20:48)
[2020-12-06] MEDS: Pantoprazole 40 MG Tab.CR PO SCH (07:58)
[2020-12-06] MEDS: Dexamethasone 4 MG/ML SDV IVPUSH SCH (09:12)
[2020-12-06] MEDS: Gemfibrozil 600 MG Tab PO SCH (09:13)
[2020-12-06] MEDS: Aspirin 81 MG Tab.EC PO SCH (09:13)
[2020-12-06] MEDS: Loratadine 10 MG Tab PO SCH (09:14)
--- NOTE | 2020-12-09 18:31 | PCM.DCSUM1 ---
Discharge Summary - Hospital Course Free Text/Narrative:: Ms. Sin is a 50-year-old female with past medical history significant for hypertension, history of TIA, and chronic kidney disease who was originally admitted on 11/30/2020 for a syncopal episode with associated cough and shortness of breath. She had also been having fever, nausea, and diarrhea with a loss of taste and smell. She was diagnosed with COVID-19 pneumonia with hypoxia. She was treated with remdesivir, dexamethasone, and enoxaparin. She continued to have episodes of dizziness/lightheadedness during her stay that were positive on orthostatics. This did resolve by the time of discharge. She was sent home with a 30-day prescription of apixaban to prevent blood clotting secondary to her Covid infection especially due to her history of TIA. Diagnosis: Stroke: No Modified Crockett Scale: No Signif.Disability Despite Sympt.Able to Carry Out Usual Act./Duties Modified Marita Scale Score: 1 - Discharge Data Discharge Date: 12/06/20 Discharge Disposition: Home, Self-Care 01 Condition: Good - Referral to Home Health Primary Care Physician: JACKY Toribio - Discharge Diagnosis/Problem(s) (1) COVID SNOMED Code(s): 744852757 ICD Code: U07.1 - COVID-19 Status: Acute (2) CKD (chronic kidney disease), stage III SNOMED Code(s): 308529792 ICD Code: N18.30 - CHRONIC KIDNEY DISEASE, STAGE 3 UNSPECIFIED Status: Chronic (3) Essential hypertension SNOMED Code(s): 37270891 ICD Code: I10 - ESSENTIAL (PRIMARY) HYPERTENSION Status: Chronic (4) History of CVA (cerebrovascular accident) SNOMED Code(s): 848923017 ICD Code: Z86.73 - PRSNL HX OF TIA (TIA), AND CEREB INFRC W/O RESID DEFICITS Status: Chronic - Patient Summary/Data Consults: Consultations 12/06/20 10:34 Consult to Physical Therapy [PT Evaluation and Treatment] [CONS] Routine Please Evaluate and Treat. PT Reason for Consult: Balance This query below is only for informational purposes and is not editable. Admission Diagnosis/Problem: Pneumonia - Patient Instructions Diet: Regular Diet as Tolerated Activity: As Tolerated Showering/Bathing: May Shower - Discharge Plan Prescriptions/Med Rec: Apixaban [Eliquis] 2.5 mg PO BID 30 Days #60 tablet Home Medications: Home Meds Loratadine 10 mg PO DAILY 12/11/17 [History] Aspirin [Halfprin] 81 mg PO DAILY 07/03/18 [History] Diclofenac Sodium [Voltaren] 1 applic TP QID PRN 07/03/18 [History] Triamcinolone Acetonide [Kenalog 0.1% Crm] 1 applic TOP BID PRN 07/03/18 [History] atorvaSTATin [Lipitor] 20 mg PO BEDTIME 07/03/18 [History] Amitriptyline [Elavil] 20 mg PO BEDTIME 05/28/19 [History] gemfibroziL [Gemfibrozil] 600 mg PO BID 09/11/20 [History] Apixaban [Eliquis] 2.5 mg PO BID 30 Days #60 tablet 12/06/20 [Rx] Patient Handouts: COVID-19, Apixaban oral tablets Forms: ED Department Discharge Referrals: Dian Vazquez PA [Primary Care Provider] - 12/09/20 1:30 pm (Please arrive 15 minutes early to register for your appointment.) - Discharge Summary/Plan Comment DC Time >30 min.: Yes (Counseled on anticoagulation therapy) Total # of Minutes for Discharge Time: 45 - General Info Date of Service: 12/06/20 Admission Dx/Problem (Free Text: Admission Diagnosis/Problem Admission Diagnosis/Problem Pneumonia COVID-19 Subjective Update: Ms. Sin was feeling well on the day of discharge. He was no longer having dizziness at rest or with most movements. She had had some dizziness earlier in the day with positive orthostatics however this resolved. She stated she had walked to the bathroom without having any issues. - Review of Systems General: Reports: No Symptoms HEENT: Reports: No Symptoms Pulmonary: Reports: No Symptoms Cardiovascular: Reports: No Symptoms Gastrointestinal: Reports: No Symptoms Genitourinary: Reports: No Symptoms Musculoskeletal: Reports: No Symptoms Skin: Reports: No Symptoms Neurological: Reports: No Symptoms Psychiatric: Reports: No Symptoms - Patient Data Vitals - Most Recent: Last Vital Signs Temp 98.7 F 12/06/20 11:00 Pulse 109 H 12/06/20 11:39 Resp 16 12/06/20 11:00 BP 98/53 L 12/06/20 11:39 Pulse Ox 91 L 12/06/20 13:45 Weight - Most Recent: 244 lb Med Orders - Current: Current Medications Discontinued Medications Acetaminophen (Acetaminophen 325 Mg Tab) 650 mg PO Q4H PRN PRN Reason: Fever Greater Than 101 Last Admin: 11/30/20 12:52 Dose: 650 mg Documented by: Acetaminophen (Acetaminophen 325 Mg Tab) 650 mg PO Q4H PRN PRN Reason: Pain (Mild 1-3)/fever Amitriptyline HCl (Amitriptyline 10 Mg Tab) 20 mg PO BEDTIME [facility] Last Admin: 12/05/20 20:48 Dose: 20 mg Documented by: Amlodipine Besylate (Amlodipine 5 Mg Tab) 5 mg PO DAILY [facility] Aspirin (Aspirin 81 Mg Tab.Ec) 81 mg PO DAILY [facility] Last Admin: 12/06/20 09:13 Dose: 81 mg Documented by: Atorvastatin Calcium (Atorvastatin 20 Mg Tab) 20 mg PO BEDTIME [facility] Last Admin: 12/05/20 20:48 Dose: 20 mg Documented by: Bacitracin (Bacitracin Oint 1 Gm U/D Packet) 0 dose TOP BID PRN PRN Reason: Wound Care Last Admin: 12/05/20 11:39 Dose: 1 dose Documented by: Benzonatate (Benzonatate 100 Mg Cap) 100 mg PO TID PRN PRN Reason: Cough Last Admin: 12/02/20 08:45 Dose: 100 mg Documented by: Calcium Carbonate/Glycine (Calcium Carbonate 500 Mg Tab.Chew) 500 mg PO Q2H PRN PRN Reason: Indigestion Calcium Carbonate/Glycine (Calcium Carbonate 500 Mg Tab.Chew) 1,000 mg PO Q2H PRN PRN Reason: Indigestion Last Admin: 12/02/20 02:19 Dose: 1,000 mg Documented by: Al Hydroxide/Mg Hydroxide 15 (ml/ Lidocaine HCl 15 ml) 0 ml PO ONETIME ONE Stop: 12/01/20 22:30 Last Admin: 12/01/20 22:41 Dose: 15 ml Documented by: Dexamethasone (Dexamethasone 4 Mg/Ml Sdv) 6 mg IVPUSH DAILY [facility] Stop: 12/09/20 09:01 Last Admin: 12/06/20 09:12 Dose: 6 mg Documented by: Diclofenac Sodium (Diclofenac Sodium 1% Gel 100 Gm Tube) 0 gm TOP QID PRN PRN Reason: Pain Enoxaparin Sodium (Enoxaparin 40 Mg/0.4 Ml Syringe) 40 mg SUBCUT Q24H [facility] Last Admin: 12/05/20 15:17 Dose: 40 mg Documented by: Gemfibrozil (Gemfibrozil 600 Mg Tab) 600 mg PO BID [facility] Last Admin: 12/06/20 09:13 Dose: 600 mg Documented by: Guaifenesin/Codeine Phosphate (Codeine/Guaifenesin 10-100 Mg/5 Ml Syrup 5 Ml Cup) 10 ml PO Q6H PRN PRN Reason: Cough Last Admin: 12/02/20 21:04 Dose: 10 ml Documented by: Guaifenesin/Dextromethorphan (Guaifenesin/Dextromethorphan 100-10 Mg/5 Ml Soln 10 Ml Cup) 10 ml PO Q4H PRN PRN Reason: Cough Last Admin: 12/01/20 00:36 Dose: 10 ml Documented by: Remdesivir 200 mg/ Sodium (Chloride) 250 mls @ 250 mls/hr IV ONETIME ONE Stop: 11/30/20 13:44 Last Admin: 11/30/20 12:53 Dose: 250 mls/hr Documented by: Remdesivir 100 mg/ Sodium (Chloride) 100 mls @ 100 mls/hr IV Q24H [facility] Stop: 12/04/20 12:59 Last Admin: 12/04/20 11:41 Dose: 100 mls/hr Documented by: Lidocaine HCl (Lidocaine 2% Viscous Solution 15 Ml Cup) Confirm Administered Dose 15 ml .ROUTE .STK-MED ONE Stop: 12/01/20 22:32 Last Admin: 12/01/20 22:34 Dose: Not Given Documented by: Loratadine (Loratadine 10 Mg Tab) 10 mg PO DAILY [facility] Last Admin: 12/06/20 09:14 Dose: 10 mg Documented by: Lorazepam (Lorazepam 2 Mg/Ml Sdv) 0.5 mg IVPUSH Q4H PRN PRN Reason: Nausea/Vomiting Metoprolol Succinate (Metoprolol Succinate 50 Mg Tab.Er) 100 mg PO DAILY [facility] Last Admin: 12/05/20 11:34 Dose: Not Given Documented by: Ondansetron HCl (Ondansetron 4 Mg/2 Ml Sdv) 4 mg IV Q6H PRN PRN Reason: Nausea/Vomiting Ondansetron HCl (Ondansetron 4 Mg Tab.Dis) 4 mg PO Q6H PRN PRN Reason: Nausea able to take PO Oxycodone/Acetaminophen (Acetaminophen/Oxycodone 325-5 Mg Tab) 1 tab PO Q4H PRN PRN Reason: Pain (moderate 4-6) Pantoprazole Sodium (Pantoprazole 40 Mg Tab.Cr) 40 mg PO DAILY [facility] Last Admin: 12/01/20 22:15 Dose: 40 mg Documented by: Pantoprazole Sodium (Pantoprazole 40 Mg Tab.Cr) 40 mg PO ACBREAKFAST [facility] Last Admin: 12/06/20 07:58 Dose: 40 mg Documented by: Senna/Docusate Sodium (Docusate Sodium/Sennosides 50-8.6 Mg Tab) 1 tab PO BID PRN PRN Reason: Constipation Last Admin: 12/04/20 09:17 Dose: 1 tab Documented by: - Exam General: Reports: Alert, Oriented HEENT: Reports: Pupils Equal, EOMI, Mucous Membr. Moist/[place] Neck: Reports: Supple Lungs: Reports: Clear to Auscultation, Normal Respiratory Effort Cardiovascular: Reports: Regular Rate, Regular Rhythm GI/Abdominal Exam: Normal Bowel Sounds, Soft, Non-Tender, No Organomegaly, No Distention Back Exam: Reports: Normal Inspection Extremities: Normal Inspection, Non-Tender, No Pedal Edema Skin: Reports: Warm, Dry, Intact Neurological: Reports: No New Focal Deficit Psy/Mental Status: Reports: Alert, Normal Affect, Normal Mood
== END 2020-12-06 15:59 | disposition home or self-care (01) | DRG 137 ==
LOC: JP.ED 10:38 → JP.2SS 13:45
PROVIDERS: ADMIT Internal Medicine; ATTEND Internal Medicine
PROC: 8E0ZXY6 Isolation (ICD-10-PCS; principal; 2020-11-30)
PROC: XW033E5 Introduction of Remdesivir Anti-infective into Peripheral Vein, Percutaneous Approach, New Technology Group 5 (ICD-10-PCS; 2020-11-30)
PROC: 3E0333Z Introduction of Anti-inflammatory into Peripheral Vein, Percutaneous Approach (ICD-10-PCS; 2020-11-30)
DX: U07.1 COVID-19 (principal); J96.01 Acute respiratory failure with hypoxia; J12.82 Pneumonia due to coronavirus disease 2019; N18.32 Chronic kidney disease, stage 3b; I12.9 Hypertensive chronic kidney disease with stage 1 through stage 4 chronic kidney disease, or unspecified chronic kidney disease; E66.9 Obesity, unspecified; E78.00 Pure hypercholesterolemia, unspecified; M54.9 Dorsalgia, unspecified; G89.29 Other chronic pain; Z68.38 Body mass index [BMI] 38.0-38.9, adult; Z79.82 Long term (current) use of aspirin; Z79.899 Other long term (current) drug therapy; Z86.73 Personal history of transient ischemic attack (TIA), and cerebral infarction without residual deficits; Z90.710 Acquired absence of both cervix and uterus
CPT/HCPCS: 36415; 80048; 80053; 80076; 83605; 84145; 85025; 85027; 85379; 86140; 93005; 94762; 96374; 99285-25; A9270-GY; J1100; J1650; J7050; U0002

== ENCOUNTER 2021-01-23 06:27 | Emergency (ER) | payer BC ==
[2021-01-23] MEDS ORDERED: Colchicine 0.6 MG Tab PO ONE (07:59)
--- NOTE | 2021-01-23 08:08 | EDM.PDOC ---
ED HPI GENERAL MEDICAL PROBLEM - General Chief Complaint: Lower Extremity Injury/Pain Stated Complaint: RT FOOT PAIN AND SWELLING Time Seen by Provider: 01/23/21 07:44 Source of Information: Reports: Patient, Family, RN Notes Reviewed History Limitations: Reports: No Limitations - History of Present Illness INITIAL COMMENTS - FREE TEXT/NARRATIVE: 50-year-old female presents emergency department with a complaint of right foot pain, she does have some edema is maybe warm to the touch. She denies any trauma states difficult for her to put any weight on the front part of her foot pain is greatest around the big toe right foot Pain Score (Numeric/FACES): 6 - Related Data Allergies Allergy/AdvReac Type Severity Reaction Status Date / Time clotrimazole Allergy Swelling Verified 01/23/21 07:31 hydrochlorothiazide Allergy Renal Verified 01/23/21 07:31 Insufficiency trazodone Allergy Other Verified 01/23/21 07:31 Home Meds: Home Meds Loratadine 10 mg PO DAILY 12/11/17 [History] Aspirin [Halfprin] 81 mg PO DAILY 07/03/18 [History] Diclofenac Sodium [Voltaren] 1 applic TP QID PRN 07/03/18 [History] Triamcinolone Acetonide [Kenalog 0.1% Crm] 1 applic TOP BID PRN 07/03/18 [History] atorvaSTATin [Lipitor] 20 mg PO BEDTIME 07/03/18 [History] Amitriptyline [Elavil] 20 mg PO BEDTIME 05/28/19 [History] gemfibroziL [Gemfibrozil] 600 mg PO BID 09/11/20 [History] Fish Oil/Borage/Flax/Om3,6,9 1 [[place] 3-6-9 1,200 mg Softgel] 1,200 mg PO DAILY 01/04/21 [History] Magnesium Oxide 400 mg PO DAILY 01/04/21 [History] Metoprolol Succinate [Toprol XL] 25 mg PO DAILY 01/04/21 [History] Multivitamin with Minerals [Multiple Vitamin] 1 tab PO DAILY 01/04/21 [History] Omeprazole Magnesium [Prilosec] 20 mg PO DAILY 01/04/21 [History] Past Medical History HEENT History: Reports: Allergic Rhinitis, Impaired Vision Cardiovascular History: Reports: High Cholesterol, Hypertension, Other (See Below) Other Cardiovascular History: loop heart recorder Gastrointestinal History: Reports: Cholelithiasis Genitourinary History: Reports: Chronic Renal Insuffiency, Renal Calculus REWARDS CONSULTANT History: Reports: Dysfunctional Uterine Bleeding, , Spontaneous Musculoskeletal History: Reports: Arthritis, Back Pain, Chronic, Other (See Below) Other Musculoskeletal History: plantar fasciitis; carpal tunnel. bone spurs Neurological History: Reports: CVA, Vertigo Endocrine/Metabolic History: Reports: Obesity/BMI 30+ - Infectious Disease History Infectious Disease History: Reports: Chicken Pox - Past Surgical History Head Surgeries/Procedures: Reports: None HEENT Surgical History: Reports: None Cardiovascular Surgical History: Reports: None GI Surgical History: Reports: Cholecystectomy, EGD, Hernia, Abdominal Female Surgical History: Reports: Hysterectomy, Salpingo-Oophorectomy, Tubal Ligation Endocrine Surgical History: Reports: None Neurological Surgical History: Reports: None Musculoskeletal Surgical History: Reports: None Social & Family History - Family History Family Medical History: No Pertinent Family History - Tobacco Use Tobacco Use Status *Q: Never Tobacco User - Caffeine Use Caffeine Use: Reports: Soda - Recreational Drug Use Recreational Drug Use: No Review of Systems - Review of Systems Review Of Systems: See Below Constitutional: Reports: No Symptoms Musculoskeletal: Reports: Foot Pain Skin: Reports: Pallor ED EXAM, GENERAL - Physical Exam Exam: See Below Free Text/Narrative:: Examination of the right foot the forefoot is markedly edematous slightly warm to the touch and I do not appreciate appreciate any erythema, She will not tolerate any type of exam with tenderness order exam. Exam Limited By: No Limitations General Appearance: Alert, WD/WN, No Apparent Distress Course - Vital Signs Last Recorded V/S: Last Vital Signs Temp 97.2 F 01/23/21 07:36 Pulse 94 01/23/21 07:36 Resp 12 01/23/21 07:36 BP 133/92 H 01/23/21 07:36 Pulse Ox 100 01/23/21 07:36 - Orders/Labs/Meds Orders: Active Orders 24 hr Category Date Time Status Colchicine [Colcrys] Med 01/23/21 09:00 Ordered 0.6 mg PO ONETIME Colchicine [Colcrys] Med 01/23/21 07:59 Once 1.2 mg PO ONETIME ONE Departure - Departure Time of Disposition: 08:07 Disposition: Home, Self-Care 01 Condition: Fair Clinical Impression: Gout Qualifiers: Gout site: foot Gout etiology: unspecified cause Chronicity: acute Laterality: right Qualified Code(s): M10.9 - Gout, unspecified - Discharge Information Instructions: Gout, [id number] Referrals: Dian Vazquez PA [Primary Care Provider] - Additional Instructions: Try the colchicine make sure and take the second dose approximately 1 hour after the ingestion of the first dose. Continue to use Tylenol as needed for pain control, please followup with your primary care provider in 3-5 days if not better, please call return to the emergency department with worsening of symptoms. Sepsis Event Note (ED) - Evaluation Sepsis Screening Result: No Definite Risk - Focused Exam Vital Signs: Vital Signs Temp Pulse Resp BP Pulse Ox 01/23/21 07:36 97.2 F 94 12 133/92 H 100 - My Orders Last 24 Hours: My Active Orders 01/23/21 07:59 Colchicine [Colcrys] 1.2 mg PO ONETIME ONE 01/23/21 09:00 Colchicine [Colcrys] 0.6 mg PO ONETIME - Assessment/Plan Last 24 Hours: My Active Orders 01/23/21 07:59 Colchicine [Colcrys] 1.2 mg PO ONETIME ONE 01/23/21 09:00 Colchicine [Colcrys] 0.6 mg PO ONETIME Plan: Assessment Acuity = acute Site and laterality = probable gout Etiology = unknown has daily diet Pepsi use Manifestations = none Location of injury = Home Lab values = none Plan Elected to try empiric treatment colchicine 1.2 mg now followed by 0.6 mg in 1 hour she will follow-up with her primary care in the next 3 to 5 days for further evaluation This note was dictated using [employer] recognition software please call with any questions on syntax or grammar.
[2021-01-23] MEDS ORDERED: Colchicine 0.6 MG Tab PO SCH (09:00)
== END 2021-01-23 08:48 | disposition home or self-care (01) ==
LOC: JP.ED 06:27
DX: M10.9 Gout, unspecified (principal); E78.00 Pure hypercholesterolemia, unspecified; I12.9 Hypertensive chronic kidney disease with stage 1 through stage 4 chronic kidney disease, or unspecified chronic kidney disease; N18.9 Chronic kidney disease, unspecified; E66.9 Obesity, unspecified; Z68.37 Body mass index [BMI] 37.0-37.9, adult; Z88.8 Allergy status to other drugs, medicaments and biological substances; Z79.82 Long term (current) use of aspirin; Z79.899 Other long term (current) drug therapy
CPT/HCPCS: 99283; A9270

== ENCOUNTER 2021-02-17 07:50 | Day surgery (SDC) | payer BC ==
[~2021-02-17 07:50] MED LIST changes: -Bupivacaine 0.5% 50 ML MDV ONE; -Lidocaine 1% with EPINEPHrine 1:100,000 50 ML MDV ONE; +Midazolam 1 MG/ML 2 ML SDV ONE; +Propofol 200 MG/20 ML SDV ONE; +Sodium Chloride 0.9% 1,000 ML IV SCH; +fentaNYL 100 MCG/2 ML SDV ONE
[2021-02-17] MEDS ORDERED: Sodium Chloride 0.9% 1,000 ML IV SCH (08:30)
--- NOTE | 2021-02-17 12:48 | OR ---
DATE OF PROCEDURE: 02/17/2021 SURGEON: Bo Valdez MD PROCEDURE: Colonoscopy. FINDINGS: Transverse colon polyp, approximately 3 mm, completely removed using cold biopsy forceps. COMPLICATIONS: None. AIR POLLUTION ANALYST: None. ANESTHESIA: MAC. PREOPERATIVE DIAGNOSIS: Screening colonoscopy. POSTOPERATIVE DIAGNOSIS: Screening colonoscopy. RISKS: Risks, benefits, alternatives, and limitations including, but not limited to infection, bleeding, perforation, false positive, false negatives were explained to the patient who wished to proceed. PROCEDURE IN DETAIL: The patient was placed in left lateral decubitus position. Digital rectal exam was performed without abnormality. Scope was introduced and advanced atraumatically to the ileocecal valve. A photo was taken of this. Scope was brought back to the ascending, transverse, descending colon, and retroflexed. No evidence of old or new blood. No masses. The aforementioned polyp was identified and completely removed. No abnormalities on retroflexion. Greater than 8 minutes was spent removing the scope. Prep was marginal with approximately 85% to 90% of luminal surface could be seen. Solid and liquid stool remained, thus possibly precluding polyps around 5 mm size from being visualized. Bo Valdez MD /[id number]
== END 2021-02-17 10:13 | disposition home or self-care (01) ==
LOC: JP.SDS 07:50
PROVIDERS: ATTEND Surgery
DX: Z12.11 Encounter for screening for malignant neoplasm of colon (principal); D12.3 Benign neoplasm of transverse colon; E78.5 Hyperlipidemia, unspecified; I12.9 Hypertensive chronic kidney disease with stage 1 through stage 4 chronic kidney disease, or unspecified chronic kidney disease; N18.30 Chronic kidney disease, stage 3 unspecified; E66.9 Obesity, unspecified; Z86.73 Personal history of transient ischemic attack (TIA), and cerebral infarction without residual deficits; Z68.38 Body mass index [BMI] 38.0-38.9, adult
CPT/HCPCS: 45380; 88305; J2250; J2704; J3010; J7030

== ENCOUNTER 2022-03-08 10:36 | Emergency (ER) | payer OTHER | END 2022-03-08 11:34 | disposition home or self-care (01) | LOC: JP.ED 10:36 | DX: S00.03XA Contusion of scalp, initial encounter (principal); E78.00 Pure hypercholesterolemia, unspecified; I12.9 Hypertensive chronic kidney disease with stage 1 through stage 4 chronic kidney disease, or unspecified chronic kidney disease; N18.9 Chronic kidney disease, unspecified; K21.9 Gastro-esophageal reflux disease without esophagitis; E66.9 Obesity, unspecified; Z68.38 Body mass index [BMI] 38.0-38.9, adult; Z88.5 Allergy status to narcotic agent; Z88.8 Allergy status to other drugs, medicaments and biological substances; Z79.82 Long term (current) use of aspirin; Z86.73 Personal history of transient ischemic attack (TIA), and cerebral infarction without residual deficits; Z86.16 Personal history of COVID-19; Z79.899 Other long term (current) drug therapy; W20.8XXA Other cause of strike by thrown, projected or falling object, initial encounter | CPT/HCPCS: 99282; 99283 ==

== ENCOUNTER 2024-06-30 13:27 | Emergency (ER) | payer OTHER ==
[2024-06-30 15:11] LABS: BASOPHILS ABSOLUTE AUTO 0.07 K/uL (0.00-0.10); BASOPHILS PERCENT AUTO 1.1 % (0.1-1.3); EOSINOPHILS ABSOLUTE AUTO 0.14 K/uL (0.00-0.40); EOSINOPHILS PERCENT AUTO 2.2 % (0.0-5.4); HEMATOCRIT 39.9 % (34.3-46.0); HEMOGLOBIN 13.9 g/dL (11.2-15.5); IMMATURE GRAN ABSOLUTE AUTO 0.04 K/uL (0.00-0.23); IMMATURE GRAN PERCENT AUTO 0.6 % (0.0-0.7); LYMPHOCYTES ABSOLUTE AUTO 2.34 K/uL (0.8-3.3); MEAN CORPUSCULAR HEMOGLOBIN 31.7 pg (31.6-35.5); MEAN CORPUSCULAR HGB CONC 34.8 g/dL (31.6-35.5); MEAN CORPUSCULAR VOLUME 91.1 fL (81.4-99.0); MONOCYTES ABSOLUTE AUTO 0.68 K/uL (0.20-0.90); MONOCYTES PERCENT AUTO 10.7 % (3.3-12.6); NEUTROPHILS ABSOLUTE AUTO 3.06 K/uL (1.0-7.6); NEUTROPHILS PERCENT AUTO 48.4 % (40.0-78.1); PLATELET COUNT,PLT 203 K/uL (130-375); RED BLOOD CELL COUNT 4.38 M/uL (3.77-5.24); WHITE BLOOD CELL COUNT,WBC 6.3 K/uL (3.2-11.0)
[2024-06-30 15:27] LABS: ANION GAP 8.4 mmol/L (5.0-14.0); BLOOD UREA NITROGEN,BUN 21 mg/dL (7-18); CALCIUM 9.7 mg/dL (8.5-10.1); CARBON DIOXIDE,CO2 28 mmol/L (21-32); CHLORIDE,CL 108 mmol/L (100-108); CREATININE 1.3 mg/dL (0.6-1.0); ESTIMATED GFR 49 mL/min (>60); GLUCOSE RANDOM 108 mg/dL (74-106); POTASSIUM,K 4.2 mmol/L (3.6-5.2); SODIUM,NA 144 mmol/L (140-148)
== END 2024-06-30 18:15 | disposition other institution (70) ==
LOC: JP.ED 13:27
DX: R47.01 Aphasia (principal); I12.9 Hypertensive chronic kidney disease with stage 1 through stage 4 chronic kidney disease, or unspecified chronic kidney disease; N18.9 Chronic kidney disease, unspecified; E11.22 Type 2 diabetes mellitus with diabetic chronic kidney disease; E66.9 Obesity, unspecified; E78.00 Pure hypercholesterolemia, unspecified; Z88.8 Allergy status to other drugs, medicaments and biological substances; Z79.82 Long term (current) use of aspirin; Z79.899 Other long term (current) drug therapy; Z79.02 Long term (current) use of antithrombotics/antiplatelets; Z90.49 Acquired absence of other specified parts of digestive tract; Z88.5 Allergy status to narcotic agent; Z79.84 Long term (current) use of oral hypoglycemic drugs; Z79.51 Long term (current) use of inhaled steroids
CPT/HCPCS: 36415; 70450; 70450-26; 80048; 85025; 93005; 99285